=== PATIENT | female | born 1945 | race Caucasian/White ===

== ENCOUNTER 2017-10-27 23:24 | Emergency (ER) | payer OTHER ==
[~2017-10-27] VITALS: Ht 149.9 cm; Wt 79.4 kg
[~2017-10-27 23:24] MED LIST: ALBU90OI INH; CHOL10002 PO; CHOLESTEROL MED; CHOLESTEROL MEDICATI PO; CYCL10 PO; IBUP800 PO; PRED20 PO; TRAM50 PO; VITAMIN D; VITAMINS
[2017-10-27 23:56] LABS: BASOPHILS ABSOLUTE AUTO 0.05 K/mm3 (0.00-0.23); BASOPHILS PERCENT AUTO 1 % (0-2); EOSINOPHILS ABSOLUTE AUTO 0.38 K/mm3 (0.00-0.68); EOSINOPHILS PERCENT AUTO 4 % (0-6); Hematocrit 39.5 % (33.0-51.0); Hemoglobin 13.2 g/dL (11.5-16.0); IMMATURE GRAN ABSOLUTE AUTO 0.02 K/mm3 (0.00-0.10); IMMATURE GRAN PERCENT AUTO 0 % (0-1); LYMPHOCYTES ABSOLUTE AUTO 3.02 K/mm3 (0.84-5.20); LYMPHOCYTES PERCENT AUTO 34 % (21-46); MONOCYTES ABSOLUTE AUTO 0.55 K/mm3 (0.16-1.47); MONOCYTES PERCENT AUTO 6 % (4-13); Mean Corpuscular HGB 31.1 pg (26.0-34.0); Mean Corpuscular HGB Conc 33.4 g/dL (31.5-36.5); Mean Corpuscular Volume 93 fL (80-100); Mean Platelet Volume 9.8 fL (9.1-12.4); NEUTROPHILS PERCENT AUTO 55 % (41-73); Platelet Count 347 K/mm3 (150-400); RDW Standard Deviation 44.1 fL (35.1-46.3); Red Blood Cell Count 4.24 M/mm3 (3.80-5.20); White Blood Cell Count 8.82 K/mm3 (4.00-11.30)
[2017-10-28 00:10] LABS: International Normalized Ratio 1.04; Prothrombin Time Results 10.7 Sec (9.7-11.5)
[2017-10-28 00:31] LABS: Alanine Aminotransfer (ALT/SGP 17 U/L (12-78); Albumin, Blood 3.5 g/dL (3.4-5.0); Alk Phos 92 U/L (50-136); Anion Gap 7 mmol/L (6-16); Aspartate Aminotrans (AST/SGOT 13 U/L (12-37); Bilirubin, Total 0.2 mg/dL (0.1-1.0); Blood Urea Nitrogen 8 mg/dL (8-24); Bun/Creatinine Ratio 10.7 (12.0-20.0); CO2, Blood 26 mmol/L (21-32); Calcium, Blood 8.3 mg/dL (8.5-10.1); Chloride, Blood 110 mmol/L (98-108); Creatinine, Blood 0.75 mg/dL (0.40-1.00); Globulin, Blood 3.6 g/dL (2.2-4.0); Glomerular Filtration Rate >60 (60-); Glucose, Blood 109 mg/dL (70-99); Potassium, Blood 3.2 mmol/L (3.5-5.5); Sodium, Blood 143 mmol/L (136-145); Total Protein, Blood 7.1 g/dL (6.4-8.2)
[2017-10-28 00:54] LABS: Source, Urine Clean Catch
[2017-10-28 01:00] LABS: Bilirubin, Urine Neg (Neg); Blood, Urine 2+ (Neg); Glucose Qualitative, Urine Neg (Neg); Ketones, Urine Neg (Neg); Leukocyte Esterase, Urine Neg (Neg); Nitrite, Urine Neg (Neg); Protein, Urine Neg (Neg); Specific Gravity, Urine 1.015 (1.003-1.022); Urobilinogen, Urine NORM (Normal); pH, Urine 6.5 (5.0-8.0)
[2017-10-28 01:07] LABS: Appearance, Urine Clear (Clear); Color, Urine Yellow (P-Yellow)
[2017-10-28 01:08] LABS: Bacteria Mod /hpf; Red Blood Cells, Urine 0-2 /hpf (0-2); Squamous Epithelial Cells Mod /hpf (Few)
[2017-10-28] MEDS ORDERED: ALBU90OI6 INH (02:09)
== END 2017-10-28 02:54 | disposition home or self-care (01) ==
LOC: ER 23:24
PROVIDERS: Emergency Medicine
DX: J44.1 Chronic obstructive pulmonary disease with (acute) exacerbation (principal); Z77.098 Contact with and (suspected) exposure to other hazardous, chiefly nonmedicinal, chemicals; F17.210 Nicotine dependence, cigarettes, uncomplicated; Z88.8 Allergy status to other drugs, medicaments and biological substances
CPT/HCPCS: 36415; 71046; 80053; 81001; 85025; 85610; 85730; 87086; 93005; 93010; 96361; 96374; 96375; 99284-25; J1885; J2405; J7030

== ENCOUNTER → 2018-10-23 | Outpatient (CLI) | payer OTHER ==
[~2018-10-23] MED LIST changes: +ALBU90OI6 INH; +ASPI325EC PO; +CALCIUM 500 MG1 EACH PO; +KRILL OIL 3001 EACH PO; +Vitamin K100 MCG PO
== END | disposition home or self-care (01) ==
LOC: PLD 11:04 → LAB SHORT 11:04
DX: D48.5 Neoplasm of uncertain behavior of skin (principal)
CPT/HCPCS: 88305

== ENCOUNTER 2019-03-10 14:06 | Emergency (ER) | payer OTHER ==
[~2019-03-10] VITALS: Ht 149.9 cm; Wt 72.6 kg
[~2019-03-10 14:06] MED LIST changes: +OMEP20ER PO
[2019-03-10 15:29] LABS: Alanine Aminotransfer (ALT/SGP 14 U/L (12-78); Albumin, Blood 3.5 g/dL (3.4-5.0); Alk Phos 112 U/L (50-136); Anion Gap 7 mmol/L (6-16); Aspartate Aminotrans (AST/SGOT 17 U/L (12-37); Bilirubin, Total 0.4 mg/dL (0.1-1.0); Blood Urea Nitrogen 8 mg/dL (8-24); Bun/Creatinine Ratio 12.7 (12.0-20.0); CO2, Blood 23 mmol/L (21-32); Calcium, Blood 8.9 mg/dL (8.5-10.1); Chloride, Blood 109 mmol/L (98-108); Creatinine, Blood 0.63 mg/dL (0.40-1.00); Globulin, Blood 3.6 g/dL (2.2-4.0); Glomerular Filtration Rate >60 (60-); Glucose, Blood 83 mg/dL (70-99); Sodium, Blood 139 mmol/L (136-145); Total Protein, Blood 7.1 g/dL (6.4-8.2); Troponin I <0.015 ng/mL (0.000-0.040)
[2019-03-10 15:31] LABS: BASOPHILS ABSOLUTE AUTO 0.03 K/mm3 (0.00-0.23); BASOPHILS PERCENT AUTO 0 % (0-2); EOSINOPHILS ABSOLUTE AUTO 0.13 K/mm3 (0.00-0.68); EOSINOPHILS PERCENT AUTO 1 % (0-6); Hematocrit 42.9 % (33.0-51.0); Hemoglobin 14.1 g/dL (11.5-16.0); IMMATURE GRAN ABSOLUTE AUTO 0.04 K/mm3 (0.00-0.10); IMMATURE GRAN PERCENT AUTO 0 % (0-1); LYMPHOCYTES ABSOLUTE AUTO 1.92 K/mm3 (0.84-5.20); LYMPHOCYTES PERCENT AUTO 16 % (21-46); MONOCYTES ABSOLUTE AUTO 0.59 K/mm3 (0.16-1.47); MONOCYTES PERCENT AUTO 5 % (4-13); Mean Corpuscular HGB 30.7 pg (26.0-34.0); Mean Corpuscular HGB Conc 32.9 g/dL (31.5-36.5); Mean Corpuscular Volume 94 fL (80-100); Mean Platelet Volume 9.9 fL (9.1-12.4); NEUTROPHILS ABSOLUTE AUTO 9.23 K/mm3 (1.96-9.15); NEUTROPHILS PERCENT AUTO 77 % (41-73); Platelet Count 355 K/mm3 (150-400); RDW Coefficient Variation 12.4 % (11.7-14.2); RDW Standard Deviation 42.5 fL (35.1-46.3); Red Blood Cell Count 4.59 M/mm3 (3.80-5.20); White Blood Cell Count 11.94 K/mm3 (4.00-11.30)
[2019-03-10] MEDS ORDERED: Ultram50 MG PO (17:56)
[2019-03-10] MEDS ORDERED: Pepcid20 MG PO (18:11)
== END 2019-03-10 18:32 | disposition home or self-care (01) ==
LOC: ER 14:06
PROVIDERS: Physician Assistant
DX: R07.9 Chest pain, unspecified (principal); Z79.899 Other long term (current) drug therapy; Z88.8 Allergy status to other drugs, medicaments and biological substances; F17.210 Nicotine dependence, cigarettes, uncomplicated
CPT/HCPCS: 36415; 71046; 80053; 84484; 85025; 93005; 93010; 99284-25

== ENCOUNTER 2019-05-29 22:00 | Observation (INO) | payer OTHER ==
[~2019-05-29] VITALS: Ht 149.9 cm; Wt 70.8 kg
[~2019-05-29 22:00] MED LIST changes: +Pepcid20 MG PO; +Ultram50 MG PO
[2019-05-29 23:12] LABS: BASOPHILS ABSOLUTE AUTO 0.04 K/mm3 (0.00-0.23); BASOPHILS PERCENT AUTO 0 % (0-2); EOSINOPHILS ABSOLUTE AUTO 0.07 K/mm3 (0.00-0.68); EOSINOPHILS PERCENT AUTO 1 % (0-6); Hematocrit 39.1 % (33.0-51.0); IMMATURE GRAN ABSOLUTE AUTO 0.07 K/mm3 (0.00-0.10); IMMATURE GRAN PERCENT AUTO 1 % (0-1); LYMPHOCYTES ABSOLUTE AUTO 1.59 K/mm3 (0.84-5.20); LYMPHOCYTES PERCENT AUTO 11 % (21-46); MONOCYTES ABSOLUTE AUTO 1.04 K/mm3 (0.16-1.47); MONOCYTES PERCENT AUTO 7 % (4-13); Mean Corpuscular HGB 30.6 pg (26.0-34.0); Mean Corpuscular HGB Conc 33.2 g/dL (31.5-36.5); Mean Corpuscular Volume 92 fL (80-100); Mean Platelet Volume 9.8 fL (9.1-12.4); NEUTROPHILS ABSOLUTE AUTO 12.33 K/mm3 (1.96-9.15); NEUTROPHILS PERCENT AUTO 81 % (41-73); Platelet Count 369 K/mm3 (150-400); RDW Coefficient Variation 12.4 % (11.7-14.2); RDW Standard Deviation 42.5 fL (35.1-46.3); Red Blood Cell Count 4.25 M/mm3 (3.80-5.20); White Blood Cell Count 15.14 K/mm3 (4.00-11.30)
[2019-05-29 23:32] LABS: Alanine Aminotransfer (ALT/SGP 14 U/L (12-78); Albumin, Blood 3.1 g/dL (3.4-5.0); Albumin/Globulin Ratio 0.7 (0.8-1.8); Alk Phos 94 U/L (50-136); Anion Gap 10 mmol/L (6-16); Aspartate Aminotrans (AST/SGOT 9 U/L (12-37); Bilirubin, Total 0.9 mg/dL (0.1-1.0); Blood Urea Nitrogen 11 mg/dL (8-24); Bun/Creatinine Ratio 13.1 (12.0-20.0); CO2, Blood 22 mmol/L (21-32); Calcium, Blood 8.8 mg/dL (8.5-10.1); Chloride, Blood 106 mmol/L (98-108); Creatinine, Blood 0.84 mg/dL (0.40-1.00); Globulin, Blood 4.2 g/dL (2.2-4.0); Glomerular Filtration Rate >60 (60-); Glucose, Blood 117 mg/dL (70-99); Potassium, Blood 3.5 mmol/L (3.5-5.5); Sodium, Blood 138 mmol/L (136-145); Total Protein, Blood 7.3 g/dL (6.4-8.2); Troponin I <0.015 ng/mL (0.000-0.040)
[2019-05-30 01:33] LABS: PO2 Arterial 54.1 mmHg (80-100); pH Blood Arterial 7.41 (7.35-7.45)
--- NOTE | 2019-05-30 03:16 | NUR ---
PATIENT IS A NEW ADMIT FROM THE ED. THREE PERSON TRANSFER FROM THE [facility] TO BED. IV ABX INFUSING ON ADMIT AND COMPLETED. PATIENT ORIENTED TO ROOM AND CALL LIGHT SYSTEM. SOB WITH EXERTION. ON ROOM AIR. REPORTED BILATERAL RIB PAIN AND RECEIVED PAIN MEDICATION IN ED BEFORE TRANSFER. CALL LIGHT IN REACH. BED IN LOWEST POSITION. WILL CONTINUE TO MONITOR.
--- NOTE | 2019-05-30 03:43 | NUR ---
RESPIRATORY PANEL COLLECTED AND SENT TO LAB. PATIENT REPORTS PIV FIELD START PAINFUL AND NEW PIV PLACED. PATIENT RESTING WATCHING TV. CALL LIGHT IN REACH.
[2019-05-30 05:03] LABS: Adenovirus Not Detected (NOT DETECT); Bordetella pertussis Not Detected (NOT DETECT); Chlamydophila pneumoniae Not Detected (NOT DETECT); Coronavirus 229E Not Detected (NOT DETECT); Coronavirus HKU1 Not Detected (NOT DETECT); Coronavirus NL63 Not Detected (NOT DETECT); Coronavirus OC43 Not Detected (NOT DETECT); Human Metapneumovirus Not Detected (NOT DETECT); Human Rhinovirus/Enterovirus Not Detected (NOT DETECT); Influenza A/2009-H1 Not Detected (NOT DETECT); Influenza A/H1 Not Detected (NOT DETECT); Influenza A/H3 Not Detected (NOT DETECT); Influenza B Not Detected (NOT DETECT); Mycoplasma pneumoniae Not Detected (NOT DETECT); Parainfluenza Virus 1 Not Detected (NOT DETECT); Parainfluenza Virus 2 Not Detected (NOT DETECT); Parainfluenza Virus 3 Not Detected (NOT DETECT); Parainfluenza Virus 4 Not Detected (NOT DETECT); Respiratory Syncytial Virus Not Detected (NOT DETECT)
--- NOTE | 2019-05-30 06:27 | NUR ---
SHIFT SUMMARY PATIENT HAD NO ACUTE CHANGES OBSERVED. AXOX 3 AND ONE ASSIST TO BSC. SOB W/EXERTION AND ON ROOM AIR. NEW PIV PLACED REPORTED FIELD START PAINFUL. CEDS 1 1/2 PACKS X 62 YEARS. ACCOUNT CONTACT ASSOCIATE REPORTS NSR 79. RESPIRATORY PANEL COLLECTED AND SENT TO LAB. NEGATIVE PANEL. VSS/AFEBRILE. REPORTED BILATERAL LOWER RIB PAIN AND TYLENOL GIVEN PER EMAR. COOPERATIVE WITH CARE. CALL LIGHT IN REACH. BED IN LOWEST POSITION. WILL CONTINUE TO MONITOR UNTIL DAY SHIFT NURSE ASSUMES CARE.
[2019-05-30 12:58] LABS: Hematocrit 37.6 % (33.0-51.0); Hemoglobin 12.3 g/dL (11.5-16.0); Mean Corpuscular HGB 30.7 pg (26.0-34.0); Mean Corpuscular HGB Conc 32.7 g/dL (31.5-36.5); Mean Corpuscular Volume 94 fL (80-100); Mean Platelet Volume 9.6 fL (9.1-12.4); Platelet Count 375 K/mm3 (150-400); RDW Coefficient Variation 12.5 % (11.7-14.2); RDW Standard Deviation 43.8 fL (35.1-46.3); Red Blood Cell Count 4.01 M/mm3 (3.80-5.20); White Blood Cell Count 9.97 K/mm3 (4.00-11.30)
[2019-05-30 13:21] LABS: Alanine Aminotransfer (ALT/SGP 10 U/L (12-78); Albumin, Blood 3.1 g/dL (3.4-5.0); Albumin/Globulin Ratio 0.8 (0.8-1.8); Alk Phos 90 U/L (50-136); Anion Gap 8 mmol/L (6-16); Aspartate Aminotrans (AST/SGOT 11 U/L (12-37); Bilirubin, Total 0.5 mg/dL (0.1-1.0); Blood Urea Nitrogen 12 mg/dL (8-24); Bun/Creatinine Ratio 14.6 (12.0-20.0); CO2, Blood 24 mmol/L (21-32); Calcium, Blood 8.8 mg/dL (8.5-10.1); Chloride, Blood 106 mmol/L (98-108); Creatinine, Blood 0.82 mg/dL (0.40-1.00); Globulin, Blood 3.9 g/dL (2.2-4.0); Glomerular Filtration Rate >60 (60-); Glucose, Blood 125 mg/dL (70-99); Potassium, Blood 3.1 mmol/L (3.5-5.5); Sodium, Blood 138 mmol/L (136-145)
--- NOTE | 2019-05-30 17:55 | NUR ---
SHIFT SUMMARY. A&OX4, SBA TO BATHROOM, PT IS AWARE OF LIMITATIONS AND CALLS APPROPRIATELY. PT CONTINUES WITH BILATERAL RIB AREA PAIN, PAIN MANAGED WELL WITH CURRENT ORDERS. NO N/V, SOB. NO NEW CHANGES OR CONCERNS.
--- NOTE | 2019-05-31 03:36 | NUR ---
SHIFT SUMMARY PATIENT HAD NO ACUTE CHANGES OBSERVED. AXOX 4 AND SBA TO BR. VSS/AFEBRILE. REPORTED SHOULDER/NECK PAIN X ONE AND IV FENTANYL 25 MCG GIVEN PER EMAR. PAIN REDUCED AND PATIENT ABLE TO SLEEP. PIV REMAINS INTACT. NS INFUSING AT 100 mL/HR. CONCRETE GRINDER OPERATOR REPORTS NSR 77. DENIES SOB AND N/V. COOPERATIVE WITH CARE. CALL LIGHT IN REACH. BED IN LOWEST POSITION. WILL CONTINUE TO MONITOR UNTIL DAY SHIFT NURSE ASSUMES CARE.
[2019-05-31] MEDS ORDERED: BENZ100A PO (11:52)
[2019-05-31] MEDS ORDERED: ALBU90OI INH (11:54)
[2019-05-31] MEDS ORDERED: Vsl#3 Capsule1 EACH PO (11:54)
[2019-05-31] MEDS ORDERED: AZIT500 PO (11:55)
[2019-05-31] MEDS ORDERED: GUAI600T33 PO (11:55)
[2019-05-31] MEDS ORDERED: CEFU500T30 PO (11:55)
[2019-05-31] MEDS ORDERED: IBUP400 PO (11:56)
--- NOTE | 2019-05-31 15:28 | NUR ---
1521 PT DISHCARGED HOME VIA PERSONAL VEHICLE ACCOMPANIED AND DRIVEN BY SISTER. PT ESCORTED TO ENTRANCE VIA W/C BY ASSOCIATE JAVA DEVELOPER. IV REMOVED. D/C PAPERWORK REVIEWED WITH PT AND COPY PROVIDED. NO NEW CHANGES OR CONCERNS.
== END 2019-05-31 15:21 | disposition home or self-care (01) ==
LOC: ER 22:00 → MEDS 22:01 → ENPENDDIS 05-31 10:00 → MEDS 05-31 15:21
PROVIDERS: Emergency Medicine; ADMIT Internal Medicine
DX: J18.9 Pneumonia, unspecified organism (principal); J96.01 Acute respiratory failure with hypoxia; E87.6 Hypokalemia; R19.7 Diarrhea, unspecified; K21.9 Gastro-esophageal reflux disease without esophagitis; Z79.899 Other long term (current) drug therapy; F17.210 Nicotine dependence, cigarettes, uncomplicated
CPT/HCPCS: 0099U; 36415; 36600; 71046; 80053; 82803; 83605; 83690; 83880; 84484; 85025; 85027; 93005; 93010; 94761; 96361; 96365; 96366; 96367; 96368; 96372; 96375; 96376; 97161; 99285-25; A9270; G0378; J0456; J0696; J1650; J1885; J1940; J2270; J2405; J3010; J7030; J7050

== ENCOUNTER → 2019-07-29 | Outpatient (CLI) | payer OTHER ==
[~2019-07-29] MED LIST changes: +AZIT500 PO; +BENZ100A PO; +CEFU500T30 PO; +GUAI600T33 PO; +IBUP400 PO; +Vsl#3 Capsule1 EACH PO
== END | disposition home or self-care (01) ==
LOC: LAB SHORT 11:39 → PLD 11:39
DX: D48.5 Neoplasm of uncertain behavior of skin (principal)
CPT/HCPCS: 88305

== ENCOUNTER → 2020-02-08 | Outpatient (CLI) | payer OTHER | END | disposition home or self-care (01) | LOC: PLD 15:40 → LAB SHORT 15:40 | DX: D22.62 Melanocytic nevi of left upper limb, including shoulder (principal); D48.5 Neoplasm of uncertain behavior of skin | CPT/HCPCS: 88305 ==

== ENCOUNTER 2020-03-03 13:23 | Emergency (ER) | payer OTHER ==
[~2020-03-03] VITALS: Ht 149.9 cm; Wt 72.6 kg
[2020-03-03 14:22] LABS: BASOPHILS ABSOLUTE AUTO 0.05 K/mm3 (0.00-0.23); BASOPHILS PERCENT AUTO 1 % (0-2); EOSINOPHILS ABSOLUTE AUTO 0.35 K/mm3 (0.00-0.68); EOSINOPHILS PERCENT AUTO 5 % (0-6); Hematocrit 42.5 % (33.0-51.0); Hemoglobin 13.8 g/dL (11.5-16.0); IMMATURE GRAN ABSOLUTE AUTO 0.02 K/mm3 (0.00-0.10); IMMATURE GRAN PERCENT AUTO 0 % (0-1); LYMPHOCYTES PERCENT AUTO 24 % (21-46); MONOCYTES ABSOLUTE AUTO 0.52 K/mm3 (0.16-1.47); MONOCYTES PERCENT AUTO 7 % (4-13); Mean Corpuscular HGB 30.6 pg (26.0-34.0); Mean Corpuscular HGB Conc 32.5 g/dL (31.5-36.5); Mean Corpuscular Volume 94 fL (80-100); Mean Platelet Volume 9.1 fL (9.1-12.4); NEUTROPHILS ABSOLUTE AUTO 4.38 K/mm3 (1.96-9.15); NEUTROPHILS PERCENT AUTO 62 % (41-73); Platelet Count 376 K/mm3 (150-400); RDW Coefficient Variation 12.5 % (11.7-14.2); RDW Standard Deviation 43.7 fL (35.1-46.3); Red Blood Cell Count 4.51 M/mm3 (3.80-5.20); White Blood Cell Count 7.02 K/mm3 (4.00-11.30)
[2020-03-03 14:32] LABS: Source, Urine Clean Catch
[2020-03-03 14:43] LABS: Appearance, Urine Clear (Clear); Bilirubin, Urine Neg (Neg); Blood, Urine Neg (Neg); Color, Urine Yellow (P-Yellow); Glucose Qualitative, Urine Neg (Neg); Ketones, Urine Neg (Neg); Leukocyte Esterase, Urine Neg (Neg); Nitrite, Urine Neg (Neg); Protein, Urine Neg (Neg); Urobilinogen, Urine NORM (Normal)
[2020-03-03 14:56] LABS: Alanine Aminotransfer (ALT/SGP 22 U/L (12-78); Albumin, Blood 3.5 g/dL (3.4-5.0); Albumin/Globulin Ratio 0.9 (0.8-1.8); Alk Phos 111 U/L (50-136); Anion Gap 4 mmol/L (6-16); Aspartate Aminotrans (AST/SGOT 20 U/L (12-37); Bilirubin, Total 0.5 mg/dL (0.1-1.0); Blood Urea Nitrogen 11 mg/dL (8-24); Bun/Creatinine Ratio 15.1 (12.0-20.0); CO2, Blood 27 mmol/L (21-32); Chloride, Blood 107 mmol/L (98-108); Creatinine, Blood 0.73 mg/dL (0.40-1.00); Glomerular Filtration Rate >60 (60-); Glucose, Blood 94 mg/dL (70-99); Potassium, Blood 4.2 mmol/L (3.5-5.5); Sodium, Blood 138 mmol/L (136-145); Total Protein, Blood 7.5 g/dL (6.4-8.2)
== END 2020-03-03 17:57 | disposition left against medical advice (07) ==
LOC: ER 13:23
PROVIDERS: Physician Assistant
DX: R42 Dizziness and giddiness (principal); J44.9 Chronic obstructive pulmonary disease, unspecified; K21.9 Gastro-esophageal reflux disease without esophagitis; F17.210 Nicotine dependence, cigarettes, uncomplicated; Z88.8 Allergy status to other drugs, medicaments and biological substances; Z79.899 Other long term (current) drug therapy
CPT/HCPCS: 36415; 70470; 71045; 80053; 81003; 84484; 85025; 93005; 93010; 96374-59; 96375-59; 99284-25; J2550; J3360; Q9967

== ENCOUNTER → 2020-08-03 | Outpatient (CLI) | payer OTHER ==
[~2020-08-03] MED LIST changes: +AZIT250 PO; +Acetaminophen325 M1 PO; +IPRAT-ALBUT 0.5-3 ML; +NICODERM CQ1 EAC3 TOP; +ONDA4ODT MM; +Q-Tussin100 MG/5 M PO
== END ==
LOC: LAB SHORT 13:05 → PLD 13:05
DX: D48.5 Neoplasm of uncertain behavior of skin (principal); D22.4 Melanocytic nevi of scalp and neck
CPT/HCPCS: 88305

== ENCOUNTER 2020-09-10 15:56 | Inpatient (IN) | payer OTHER ==
[~2020-09-10] VITALS: Ht 149.9 cm; Wt 67.4 kg
[~2020-09-10 15:56] MED LIST changes: -AZIT250 PO; -Acetaminophen325 M1 PO; -IPRAT-ALBUT 0.5-3 ML; -NICODERM CQ1 EAC3 TOP; -ONDA4ODT MM; -Q-Tussin100 MG/5 M PO
[2020-09-10 16:54] LABS: BASOPHILS ABSOLUTE AUTO 0.04 K/mm3 (0.00-0.23); BASOPHILS PERCENT AUTO 1 % (0-2); EOSINOPHILS ABSOLUTE AUTO 0.26 K/mm3 (0.00-0.68); EOSINOPHILS PERCENT AUTO 3 % (0-6); Hemoglobin 13.6 g/dL (11.5-16.0); IMMATURE GRAN ABSOLUTE AUTO 0.09 K/mm3 (0.00-0.10); IMMATURE GRAN PERCENT AUTO 1 % (0-1); LYMPHOCYTES ABSOLUTE AUTO 1.33 K/mm3 (0.84-5.20); LYMPHOCYTES PERCENT AUTO 16 % (21-46); MONOCYTES ABSOLUTE AUTO 0.46 K/mm3 (0.16-1.47); MONOCYTES PERCENT AUTO 6 % (4-13); Mean Corpuscular HGB 30.2 pg (26.0-34.0); Mean Corpuscular HGB Conc 33.2 g/dL (31.5-36.5); Mean Corpuscular Volume 91 fL (80-100); NEUTROPHILS ABSOLUTE AUTO 6.19 K/mm3 (1.96-9.15); NEUTROPHILS PERCENT AUTO 74 % (41-73); RDW Coefficient Variation 13.4 % (11.7-14.2); RDW Standard Deviation 44.9 fL (35.1-46.3); White Blood Cell Count 8.37 K/mm3 (4.00-11.30)
[2020-09-10 16:55] LABS: Mean Platelet Volume 9.9 fL (9.1-12.4); Platelet Count 313 K/mm3 (150-400)
[2020-09-10 17:13] LABS: Alanine Aminotransfer (ALT/SGP 14 U/L (12-78); Albumin, Blood 3.2 g/dL (3.4-5.0); Albumin/Globulin Ratio 0.8 (0.8-1.8); Alk Phos 98 U/L (50-136); Anion Gap 5 mmol/L (6-16); Aspartate Aminotrans (AST/SGOT 10 U/L (12-37); Bilirubin, Total 0.4 mg/dL (0.1-1.0); Blood Urea Nitrogen 8 mg/dL (8-24); Bun/Creatinine Ratio 9.5 (12.0-20.0); CO2, Blood 28 mmol/L (21-32); Calcium, Blood 8.5 mg/dL (8.5-10.1); Chloride, Blood 105 mmol/L (98-108); Creatinine, Blood 0.84 mg/dL (0.40-1.00); Globulin, Blood 4.1 g/dL (2.2-4.0); Glomerular Filtration Rate >60 (60-); Glucose, Blood 117 mg/dL (70-99); Potassium, Blood 2.7 mmol/L (3.5-5.5); Sodium, Blood 138 mmol/L (136-145); Total Protein, Blood 7.3 g/dL (6.4-8.2); Troponin I <0.015 ng/mL (0.000-0.040)
[2020-09-10 17:23] LABS: SARS-Cov-2 (COVID-19) PCR, MMC NEGATIVE (NEGATIVE)
[2020-09-10 19:17] LABS: Source, Urine Clean Catch
[2020-09-10 19:20] LABS: Bilirubin, Urine Neg (Neg); Blood, Urine 3+ (Neg); Glucose Qualitative, Urine Neg (Neg); Ketones, Urine Neg (Neg); Leukocyte Esterase, Urine Neg (Neg); Nitrite, Urine Neg (Neg); Protein, Urine 1+ (Neg); Urobilinogen, Urine 1+ (Normal); pH, Urine 6.5 (5.0-8.0)
[2020-09-10 19:27] LABS: Appearance, Urine Clear (Clear); Color, Urine Pale Yellow (P-Yellow)
[2020-09-10 19:28] LABS: White Blood Cells, Urine Rare /hpf (0-5)
[2020-09-10 19:29] LABS: Bacteria Few /hpf; Squamous Epithelial Cells Rare /hpf (Few)
--- NOTE | 2020-09-10 20:25 | NUR ---
ADMITTED 75 YR OLD FEMALE WITH DX OF PNEUMONIA. ED RN REPORETD PT HAD 2 WEEKS OF N/V, DIARRHEA AND CONGESTION PRIOR TO ADMISSION TODAY. OREINTED TO USE OF CALL LIGHT. ALERT AND ORIENTED X 4. UP AD CISCO. CALL LIGHT IN REACH
--- NOTE | 2020-09-10 22:55 | NUR ---
MD IN TO ASSESS PT. CALL LIGHT IN REACH
--- NOTE | 2020-09-11 05:34 | NUR ---
METAL ENGINEERING PROCESS WORKER SUMMARY ADMITTED LAST EVENING FROM THE ED WITH DX OF PNEUMONIA. INTERMITTENT COUGHING THROUGHOUT NOCT. LUNG AUSCULTATION CONGESTED, RONCHI AND DIMINISHED. RECEIVED COUGH MED X 2, MED EFFECTIVE SHE WAS ABLE TO GET SOME REST AT INTERVALS. MD ORDERED IV POTASSIUM, MED INFUSING SLOWLY WITH NS, PT VOICED PAIN WITH INFUSION. CALL LIGHT IN REACH.
[2020-09-11 05:43] LABS: BASOPHILS ABSOLUTE AUTO 0.01 K/mm3 (0.00-0.23); BASOPHILS PERCENT AUTO 0 % (0-2); EOSINOPHILS PERCENT AUTO 0 % (0-6); Hematocrit 38.4 % (33.0-51.0); Hemoglobin 12.8 g/dL (11.5-16.0); IMMATURE GRAN ABSOLUTE AUTO 0.03 K/mm3 (0.00-0.10); IMMATURE GRAN PERCENT AUTO 0 % (0-1); LYMPHOCYTES ABSOLUTE AUTO 0.63 K/mm3 (0.84-5.20); LYMPHOCYTES PERCENT AUTO 7 % (21-46); MONOCYTES ABSOLUTE AUTO 0.07 K/mm3 (0.16-1.47); MONOCYTES PERCENT AUTO 1 % (4-13); Mean Corpuscular HGB 30.8 pg (26.0-34.0); Mean Corpuscular HGB Conc 33.3 g/dL (31.5-36.5); Mean Corpuscular Volume 93 fL (80-100); Mean Platelet Volume 10.6 fL (9.1-12.4); NEUTROPHILS ABSOLUTE AUTO 8.06 K/mm3 (1.96-9.15); NEUTROPHILS PERCENT AUTO 92 % (41-73); Platelet Count 325 K/mm3 (150-400); RDW Coefficient Variation 13.4 % (11.7-14.2); RDW Standard Deviation 45.7 fL (35.1-46.3); Red Blood Cell Count 4.15 M/mm3 (3.80-5.20)
[2020-09-11 06:03] LABS: Alanine Aminotransfer (ALT/SGP 15 U/L (12-78); Albumin, Blood 3.1 g/dL (3.4-5.0); Albumin/Globulin Ratio 0.7 (0.8-1.8); Alk Phos 96 U/L (50-136); Anion Gap 9 mmol/L (6-16); Aspartate Aminotrans (AST/SGOT 10 U/L (12-37); Bilirubin, Total 0.3 mg/dL (0.1-1.0); Blood Urea Nitrogen 9 mg/dL (8-24); Bun/Creatinine Ratio 12.8 (12.0-20.0); CO2, Blood 22 mmol/L (21-32); Calcium, Blood 8.6 mg/dL (8.5-10.1); Chloride, Blood 106 mmol/L (98-108); Creatinine, Blood 0.71 mg/dL (0.40-1.00); Globulin, Blood 4.2 g/dL (2.2-4.0); Glomerular Filtration Rate >60 (60-); Glucose, Blood 236 mg/dL (70-99); Potassium, Blood 3.2 mmol/L (3.5-5.5); Sodium, Blood 137 mmol/L (136-145); Total Protein, Blood 7.3 g/dL (6.4-8.2)
--- NOTE | 2020-09-11 16:52 | NUR ---
SHIFT SUMMARY PT ALERT AND ORIENTED THROUGHOUT SHIFT. INDPENDENT IN ROOM AND TO BATHROOM. COUGH WITH DIMINISHED LUNG SOUNDS IN BASES. SPO2 ABOVE 90% ON RA. HERE FOR IV ABX. MEDICATED FOR PAIN PER EMAR. TOLERATING REGULAR DIET AND FLUIDS.
--- NOTE | 2020-09-11 22:10 | NUR ---
2052 PT LYING IN BED, REPORTS BACK PAIN, GAVE TYLENOL, WILL EVAL FOR EFFECT. REPORTS SOB AND OCCASIONAL PRODUCTIVE COUGH, SPUTUM IS CLEAR PER PT, ON RA AT 91%. NO OTHER APPARENT SIGNS OF DISTRESS. CALL LIGHT IS IN REACH.
--- NOTE | 2020-09-12 02:50 | NUR ---
0000 PT LYING IN BED, DENIES NEED FOR ANYTHING AT THIS TIME. NO APPARENT SIGNS OF DISTRESS. CALL LIGHT IS IN REACH.
--- NOTE | 2020-09-12 02:50 | NUR ---
PT LYING IN BED, EYES CLOSED, APPEARS TO BE RESTING. BREATHING IS EVEN, UNLABORED. NO APPARENT SIGNS OF DISTRESS. CALL LIGHT IS IN REACH.
--- NOTE | 2020-09-12 04:45 | NUR ---
PT REQUESTED AND RECIEVED COUGH MEDICINE, WILL EVAL FOR EFFECT. NO OTHER APPARENT SIGNS OF DISTRESS. CALL LIGHT IS IN REACH. PT DENIES NEED FOR ANYTHING ELSE AT THIS TIME.
--- NOTE | 2020-09-12 04:45 | NUR ---
PT IS AAO X 4, SOB, ON RA AT 91%. CHRONIC BACK PAIN, GOT TYLENOL AT HS. OCC PRODUCTIVE COUGH, CLEAR THIN SPUTUM SMALL AMOUNT PER PT, GOT COUGH MEDICINE X 2, LAST AT 0447.
[2020-09-12 05:17] LABS: BASOPHILS ABSOLUTE AUTO 0.02 K/mm3 (0.00-0.23); BASOPHILS PERCENT AUTO 0 % (0-2); EOSINOPHILS PERCENT AUTO 0 % (0-6); Hematocrit 38.8 % (33.0-51.0); Hemoglobin 12.7 g/dL (11.5-16.0); IMMATURE GRAN ABSOLUTE AUTO 0.09 K/mm3 (0.00-0.10); IMMATURE GRAN PERCENT AUTO 1 % (0-1); LYMPHOCYTES ABSOLUTE AUTO 1.35 K/mm3 (0.84-5.20); LYMPHOCYTES PERCENT AUTO 9 % (21-46); MONOCYTES ABSOLUTE AUTO 0.27 K/mm3 (0.16-1.47); MONOCYTES PERCENT AUTO 2 % (4-13); Mean Corpuscular HGB 29.8 pg (26.0-34.0); Mean Corpuscular HGB Conc 32.7 g/dL (31.5-36.5); Mean Corpuscular Volume 91 fL (80-100); Mean Platelet Volume 10.4 fL (9.1-12.4); NEUTROPHILS ABSOLUTE AUTO 13.95 K/mm3 (1.96-9.15); NEUTROPHILS PERCENT AUTO 89 % (41-73); Platelet Count 400 K/mm3 (150-400); RDW Coefficient Variation 13.3 % (11.7-14.2); RDW Standard Deviation 45.4 fL (35.1-46.3); Red Blood Cell Count 4.26 M/mm3 (3.80-5.20); White Blood Cell Count 15.68 K/mm3 (4.00-11.30)
[2020-09-12 05:34] LABS: Anion Gap 5 mmol/L (6-16); Blood Urea Nitrogen 11 mg/dL (8-24); Bun/Creatinine Ratio 14.5 (12.0-20.0); CO2, Blood 25 mmol/L (21-32); Calcium, Blood 9.1 mg/dL (8.5-10.1); Chloride, Blood 110 mmol/L (98-108); Creatinine, Blood 0.76 mg/dL (0.40-1.00); Glomerular Filtration Rate >60 (60-); Glucose, Blood 137 mg/dL (70-99); Potassium, Blood 3.7 mmol/L (3.5-5.5); Sodium, Blood 140 mmol/L (136-145)
--- NOTE | 2020-09-12 06:15 | NUR ---
PT LYING IN BED, EYES CLOSED, APPEARS TO BE RESTING. BREATHING IS EVEN, UNLABORED. NO APPARENT SIGNS OF DISTRESS. CALL LIGHT IS IN REACH. NO OTHER CHANGES THIS SHIFT.
--- NOTE | 2020-09-12 18:05 | NUR ---
SHIFT SUMMARY PT A/O X4 AND IND IN THE ROOM. C/O COUGHING FITS AND TREATED PER EMR. PT IS A LONG TIME SMOKER; NICOTINE PATCH IN PLACE. HAD AN EPISODE OF HTN TODAY AND THE PHYSICIAN WAS NOTIFIED AND ORDERS WERE RECEIVED. RECHECKED BP AND HTN HAD SINCE RESOLVED. VS CURRENTLY STABLE. WILL REPORT TO JEOVANY JOHNSON.
--- NOTE | 2020-09-12 19:35 | NUR ---
AWAKENED DURING SHIFT CHANGE REEPORT. NO COMPLAINTS VOICED. CALL LIGHT IN REACH
--- NOTE | 2020-09-13 04:01 | NUR ---
ACTUARIAL CONSULTANT SUMMARY HAS BEEN RESTING QUIETLY WITH FEW INTERRUPTIONS SINCE HS. OCCASIONAL COUGHING, BUT NOT LIKE WAS NOTED 24 HRS PREVIOUS. CALL LIGHT IN REACH.
[2020-09-13] MEDS ORDERED: Acetaminophen325 M1 PO (11:34)
[2020-09-13] MEDS ORDERED: AZIT250 PO (11:35)
[2020-09-13] MEDS ORDERED: Q-Tussin100 MG/5 M PO (11:36)
[2020-09-13] MEDS ORDERED: IPRAT-ALBUT 0.5-3 ML (11:37)
[2020-09-13] MEDS ORDERED: ONDA4ODT MM (11:39)
[2020-09-13] MEDS ORDERED: NICODERM CQ1 EAC3 TOP (11:39)
[2020-09-13] MEDS ORDERED: PRED20 PO (11:40)
== END 2020-09-13 12:09 | disposition home or self-care (01) | DRG 205 ==
LOC: ER 15:56 → MEDS 15:57 → ER 19:25 → MEDS 19:25
PROVIDERS: Internal Medicine; Physician Assistant; ADMIT Internal Medicine
DX: J70.0 Acute pulmonary manifestations due to radiation (principal); J96.21 Acute and chronic respiratory failure with hypoxia; C34.90 Malignant neoplasm of unspecified part of unspecified bronchus or lung; K21.9 Gastro-esophageal reflux disease without esophagitis; F17.210 Nicotine dependence, cigarettes, uncomplicated; E86.0 Dehydration; K52.9 Noninfective gastroenteritis and colitis, unspecified; E87.6 Hypokalemia; J20.9 Acute bronchitis, unspecified; K46.9 Unspecified abdominal hernia without obstruction or gangrene; J43.9 Emphysema, unspecified; G89.29 Other chronic pain; R10.31 Right lower quadrant pain; Z90.89 Acquired absence of other organs; Z98.890 Other specified postprocedural states; Z98.891 History of uterine scar from previous surgery; Z79.899 Other long term (current) drug therapy; W88.0XXA Exposure to X-rays, initial encounter
CPT/HCPCS: 36415; 71045; 71260; 74177; 80048; 80053; 81001; 83690; 83880; 84145; 84484; 85025; 93005; 93010; 94640; 94667; 94760; 96365; 99284-25; A9270; C9113; J0456; J0696; J1650; J2930; J3475; J3480; J7050; J7512; Q9967; U0004

== ENCOUNTER 2020-11-29 19:59 | Emergency (ER) | payer OTHER ==
[~2020-11-29] VITALS: Ht 149.9 cm; Wt 70.3 kg
[~2020-11-29 19:59] MED LIST changes: +AZIT250 PO; +Acetaminophen325 M1 PO; +IPRAT-ALBUT 0.5-3 ML; +NICODERM CQ1 EAC3 TOP; +ONDA4ODT MM; +Q-Tussin100 MG/5 M PO
== END 2020-11-29 22:33 | disposition home or self-care (01) ==
LOC: ER 19:59
DX: S82.034A Nondisplaced transverse fracture of right patella, initial encounter for closed fracture (principal); J44.9 Chronic obstructive pulmonary disease, unspecified; F17.210 Nicotine dependence, cigarettes, uncomplicated; Z88.8 Allergy status to other drugs, medicaments and biological substances; Z79.899 Other long term (current) drug therapy; W18.30XA Fall on same level, unspecified, initial encounter
CPT/HCPCS: 73564; 99283-25; A9270

== ENCOUNTER 2020-12-20 11:55 | Emergency (ER) | payer OTHER ==
[~2020-12-20] VITALS: Ht 149.9 cm; Wt 70.8 kg
== END 2020-12-20 14:38 | disposition home or self-care (01) ==
LOC: ER 11:55
DX: S82.001D Unspecified fracture of right patella, subsequent encounter for closed fracture with routine healing (principal); M79.661 Pain in right lower leg; J44.9 Chronic obstructive pulmonary disease, unspecified; F17.210 Nicotine dependence, cigarettes, uncomplicated; Z88.8 Allergy status to other drugs, medicaments and biological substances; Z79.899 Other long term (current) drug therapy
CPT/HCPCS: 73564; 93971; 99283-25

== ENCOUNTER 2021-01-30 09:06 | Emergency (ER) | payer OTHER ==
[~2021-01-30] VITALS: Ht 149.9 cm; Wt 71.2 kg
[2021-01-30 09:26] LABS: Source, Urine Clean Catch
[2021-01-30 09:30] LABS: Appearance, Urine Clear (Clear); Bilirubin, Urine Neg (Neg); Blood, Urine 5+ (Neg); Color, Urine Yellow (P-Yellow); Glucose Qualitative, Urine Neg (Neg); Ketones, Urine 3+ (Neg); Leukocyte Esterase, Urine 1+ (Neg); Nitrite, Urine Neg (Neg); Protein, Urine 3+ (Neg); Specific Gravity, Urine 1.025 (1.003-1.022); Urobilinogen, Urine NORM (Normal)
[2021-01-30 09:42] LABS: Squamous Epithelial Cells Few /hpf (Few)
[2021-01-30 09:43] LABS: Bacteria Few /hpf; Mucus Light (0-Heavy)
[2021-01-30 09:55] LABS: BASOPHILS ABSOLUTE AUTO 0.03 K/mm3 (0.00-0.23); BASOPHILS PERCENT AUTO 0 % (0-2); EOSINOPHILS ABSOLUTE AUTO 0.05 K/mm3 (0.00-0.68); EOSINOPHILS PERCENT AUTO 0 % (0-6); Hematocrit 38.5 % (33.0-51.0); Hemoglobin 12.8 g/dL (11.5-16.0); IMMATURE GRAN ABSOLUTE AUTO 0.05 K/mm3 (0.00-0.10); IMMATURE GRAN PERCENT AUTO 0 % (0-1); LYMPHOCYTES ABSOLUTE AUTO 0.91 K/mm3 (0.84-5.20); LYMPHOCYTES PERCENT AUTO 7 % (21-46); MONOCYTES ABSOLUTE AUTO 0.36 K/mm3 (0.16-1.47); MONOCYTES PERCENT AUTO 3 % (4-13); Mean Corpuscular HGB 30.7 pg (26.0-34.0); Mean Corpuscular HGB Conc 33.2 g/dL (31.5-36.5); Mean Corpuscular Volume 92 fL (80-100); Mean Platelet Volume 9.8 fL (9.1-12.4); NEUTROPHILS ABSOLUTE AUTO 11.97 K/mm3 (1.96-9.15); NEUTROPHILS PERCENT AUTO 90 % (41-73); Platelet Count 434 K/mm3 (150-400); RDW Coefficient Variation 12.3 % (11.7-14.2); RDW Standard Deviation 41.9 fL (35.1-46.3); Red Blood Cell Count 4.17 M/mm3 (3.80-5.20); White Blood Cell Count 13.37 K/mm3 (4.00-11.30)
[2021-01-30 10:09] LABS: Alanine Aminotransfer (ALT/SGP 17 U/L (12-78); Albumin, Blood 3.3 g/dL (3.4-5.0); Albumin/Globulin Ratio 0.7 (0.8-1.8); Alk Phos 103 U/L (50-136); Anion Gap 3 mmol/L (6-16); Aspartate Aminotrans (AST/SGOT 14 U/L (12-37); Bilirubin, Total 0.6 mg/dL (0.1-1.0); Blood Urea Nitrogen 10 mg/dL (8-24); Bun/Creatinine Ratio 11.8 (12.0-20.0); CO2, Blood 27 mmol/L (21-32); Calcium, Blood 9.4 mg/dL (8.5-10.1); Chloride, Blood 108 mmol/L (98-108); Creatinine, Blood 0.85 mg/dL (0.40-1.00); Globulin, Blood 4.5 g/dL (2.2-4.0); Glomerular Filtration Rate >60 (60-); Glucose, Blood 137 mg/dL (70-99); Potassium, Blood 4.2 mmol/L (3.5-5.5); Sodium, Blood 138 mmol/L (136-145); Total Protein, Blood 7.8 g/dL (6.4-8.2)
[2021-01-30] MEDS ORDERED: HYDR1TAB94 PO (11:37)
== END 2021-01-30 11:53 | disposition home or self-care (01) ==
LOC: ER 09:06
PROVIDERS: Emergency Medicine; Physician Assistant
DX: N13.2 Hydronephrosis with renal and ureteral calculous obstruction (principal); F17.210 Nicotine dependence, cigarettes, uncomplicated; J44.9 Chronic obstructive pulmonary disease, unspecified; Z88.8 Allergy status to other drugs, medicaments and biological substances; Z79.899 Other long term (current) drug therapy
CPT/HCPCS: 74176; 80053; 81001; 85025; 87086; 96374; 99285-25; J1885

== ENCOUNTER 2021-08-18 20:40 | Emergency (ER) | payer OTHER ==
[~2021-08-18] VITALS: Ht 149.9 cm; Wt 70.3 kg
[~2021-08-18 20:40] MED LIST changes: +HYDR1TAB94 PO
[2021-08-18 21:42] LABS: BASOPHILS ABSOLUTE AUTO 0.02 K/mm3 (0.00-0.23); BASOPHILS PERCENT AUTO 0 % (0-2); EOSINOPHILS PERCENT AUTO 0 % (0-6); Hemoglobin 13.3 g/dL (11.5-16.0); IMMATURE GRAN ABSOLUTE AUTO 0.04 K/mm3 (0.00-0.10); IMMATURE GRAN PERCENT AUTO 0 % (0-1); LYMPHOCYTES ABSOLUTE AUTO 1.16 K/mm3 (0.84-5.20); LYMPHOCYTES PERCENT AUTO 8 % (21-46); MONOCYTES ABSOLUTE AUTO 0.84 K/mm3 (0.16-1.47); MONOCYTES PERCENT AUTO 6 % (4-13); Mean Corpuscular HGB 31.5 pg (26.0-34.0); Mean Corpuscular HGB Conc 34.1 g/dL (31.5-36.5); Mean Corpuscular Volume 92 fL (80-100); Mean Platelet Volume 9.8 fL (9.1-12.4); NEUTROPHILS ABSOLUTE AUTO 12.75 K/mm3 (1.96-9.15); NEUTROPHILS PERCENT AUTO 86 % (41-73); Platelet Count 313 K/mm3 (150-400); RDW Coefficient Variation 12.5 % (11.7-14.2); RDW Standard Deviation 42.6 fL (35.1-46.3); Red Blood Cell Count 4.22 M/mm3 (3.80-5.20); White Blood Cell Count 14.81 K/mm3 (4.00-11.30)
[2021-08-19 00:12] LABS: Albumin, Blood 3.2 g/dL (3.4-5.0); Albumin/Globulin Ratio 0.8 (0.8-1.8); Bilirubin, Total 1.1 mg/dL (0.1-1.0); Bun/Creatinine Ratio 16.8 (12.0-20.0); Calcium, Blood 8.9 mg/dL (8.5-10.1); Creatinine, Blood 0.78 mg/dL (0.40-1.00); Potassium, Blood 3.2 mmol/L (3.5-5.5); Total Protein, Blood 7.2 g/dL (6.4-8.2)
[2021-08-19] MEDS ORDERED: Zithromax250 MG PO (00:59)
[2021-08-19] MEDS ORDERED: BENZ100A PO (00:59)
== END 2021-08-19 01:20 | disposition home or self-care (01) ==
LOC: ER 20:40
PROVIDERS: Emergency Medicine
DX: J44.1 Chronic obstructive pulmonary disease with (acute) exacerbation (principal); F17.210 Nicotine dependence, cigarettes, uncomplicated; Z88.5 Allergy status to narcotic agent; Z88.8 Allergy status to other drugs, medicaments and biological substances; Z79.899 Other long term (current) drug therapy
CPT/HCPCS: 71046; 80053; 84484; 85025; 93005; 93010; 99284-25; A9270

== ENCOUNTER → 2021-10-16 | Outpatient (CLI) | payer OTHER ==
[~2021-10-16] MED LIST changes: +Zithromax250 MG PO
== END | disposition home or self-care (01) ==
LOC: PLD 12:49 → LAB SHORT 12:49
DX: D22.5 Melanocytic nevi of trunk (principal)
CPT/HCPCS: 88305

== ENCOUNTER 2022-11-09 10:43 | Day surgery (SDC) | payer OTHER ==
[~2022-11-09] VITALS: Ht 149.9 cm; Wt 69.8 kg
[~2022-11-09 10:43] MED LIST changes: +ASPI325 PO; +B COMPLEX FORM0.4 MG PO; +Crestor40 MG PO; +FISH OIL 1,2001 EAC7 PO; +PRENATAL TABLE1 EAC2 PO; +THERA-D2000 UNIT PO
[2022-11-09 13:39] VITALS: BP 148/89
== END 2022-11-09 13:38 | disposition home or self-care (01) ==
LOC: ORSCSDS 10:43 → ORD 12:30 → ORSCSDS 13:38
PROVIDERS: Surgery
PROC: 0DBH8ZX Excision of Cecum, Via Natural or Artificial Opening Endoscopic, Diagnostic (ICD-10-PCS; principal; 2022-11-09 12:00)
DX: R93.3 Abnormal findings on diagnostic imaging of other parts of digestive tract (principal); D12.0 Benign neoplasm of cecum; R10.9 Unspecified abdominal pain; J44.9 Chronic obstructive pulmonary disease, unspecified; E78.5 Hyperlipidemia, unspecified; F17.210 Nicotine dependence, cigarettes, uncomplicated; Z79.82 Long term (current) use of aspirin; Z79.899 Other long term (current) drug therapy
CPT/HCPCS: 88305; J0461; J2001; J2405; J2704; J7120; Q9968

== ENCOUNTER 2022-11-12 11:52 | Inpatient (IN) | payer OTHER ==
[~2022-11-12] VITALS: Ht 149.9 cm; Wt 69.3 kg
[2022-11-12 12:28] LABS: BASOPHILS ABSOLUTE AUTO 0.03 K/mm3 (0.00-0.23); BASOPHILS PERCENT AUTO 0 % (0-2); EOSINOPHILS ABSOLUTE AUTO 0.06 K/mm3 (0.00-0.68); EOSINOPHILS PERCENT AUTO 1 % (0-6); Hematocrit 38.5 % (33.0-51.0); Hemoglobin 13.4 g/dL (11.5-16.0); IMMATURE GRAN ABSOLUTE AUTO 0.03 K/mm3 (0.00-0.10); IMMATURE GRAN PERCENT AUTO 0 % (0-1); LYMPHOCYTES ABSOLUTE AUTO 1.03 K/mm3 (0.84-5.20); LYMPHOCYTES PERCENT AUTO 13 % (21-46); MONOCYTES ABSOLUTE AUTO 0.55 K/mm3 (0.16-1.47); MONOCYTES PERCENT AUTO 7 % (4-13); Mean Corpuscular HGB 31.8 pg (26.0-34.0); Mean Corpuscular HGB Conc 34.8 g/dL (31.5-36.5); Mean Corpuscular Volume 91 fL (80-100); Mean Platelet Volume 10.8 fL (9.1-12.4); NEUTROPHILS ABSOLUTE AUTO 6.29 K/mm3 (1.96-9.15); NEUTROPHILS PERCENT AUTO 79 % (41-73); Platelet Count 293 K/mm3 (150-400); RDW Coefficient Variation 12.6 % (11.7-14.2); RDW Standard Deviation 41.4 fL (35.1-46.3); Red Blood Cell Count 4.21 M/mm3 (3.80-5.20); White Blood Cell Count 7.99 K/mm3 (4.00-11.30)
[2022-11-12 12:51] LABS: Albumin, Blood 3.5 g/dL (3.4-5.0); Albumin/Globulin Ratio 0.9 (0.8-1.8); Bilirubin, Total 1.4 mg/dL (0.1-1.0); Bun/Creatinine Ratio 20.1 (12.0-20.0); Calcium, Blood 9.1 mg/dL (8.5-10.1); Creatinine, Blood 0.85 mg/dL (0.40-1.00); Globulin, Blood 3.8 g/dL (2.2-4.0); Potassium, Blood 4.4 mmol/L (3.5-5.5); Total Protein, Blood 7.3 g/dL (6.4-8.2)
--- NOTE | 2022-11-12 18:49 | NUR ---
ARRIVAL PT ARRIVED TO 324 FROM ER. PT SLIDE TO BED FROM [facility], TOLERATED WELL. PT CONTINUES TO ENDORSE NAUSEA. AA0X4. CALL LIGHT PROVIDED EDUCATED ON USE. BELONGINGS WITH PATIENT. WILL GIVE REPORT TO ONCOMING RN.
[2022-11-12 19:26] VITALS: BP 141/67
[2022-11-12] MEDS ORDERED: Norco 5-325 Ta1 EACH PO (19:34)
[2022-11-12] MEDS ORDERED: DOCU100 PO (19:34)
--- NOTE | 2022-11-13 04:04 | NUR ---
SHIFT SUMMARY. SHIFT HAS BEEN UNREMARKABLE. PT ARRIVED AT SHIFT CHANGE. AOX4, PLEASANT, COOPERATIVE WITH CARE. COMPLAINTS OF PAIN/NAUSEA EARLY IN SHIFT THAT HAVE BEEN WELL MANAGED VIA PRN MEDICATIONS. HAS SLEPT THROUGH MOST OF SHIFT AFTER ASSESSMENT. FLUIDS RUNNING THROUGHOUT SHIFT. ROOM AIR. INDEPENDENT WITHIN ROOM. CALLS APPROPRIATELY. CLEAR LIQUID DIET. SCDs IN PLACE. BED LOCKED IN LOWEST POSITION. CALL LIGHT LEFT WITHIN REACH.
[2022-11-13 04:57] VITALS: BP 119/60
[2022-11-13 05:53] LABS: Bun/Creatinine Ratio 23.4 (12.0-20.0); Calcium, Blood 8.4 mg/dL (8.5-10.1); Creatinine, Blood 0.73 mg/dL (0.40-1.00); Potassium, Blood 3.2 mmol/L (3.5-5.5)
[2022-11-13 07:53] VITALS: BP 108/53
[2022-11-13] MEDS ORDERED: LIDOCAINE1 EACH TOP (11:42)
[2022-11-13] MEDS ORDERED: ONDA8 PO (11:43)
--- NOTE | 2022-11-13 13:09 | NUR ---
Pt sitting on edge of bed upon arrival. Pt is A&OX4 and denies pain, dyspnea, nausea, and anxiety at this time. Pt does report experiencing some pain when swallowing. Pt reports inability to take PO liquids as well. She states the liquid is coming back up now. Pt's SO Ke at bedside. Listened as Pt reports having children who live out of town. She states the cancer is at Stage 2 with treatment goals of cure. She reports receiving chemo and radiation treatments. Engaged in therapeutic conversation regarding code status. Educated on life sustaining treatments including risks and implications to CPR/Intubation. Pt reports her wishes as DNR. Pt agreeable to complete POLST. Assisted Pt with completing POLST and discussed options to choose from. Pt's resource recovery engineer in to visit and she request to finish POLST at a later time. Ended visit to allosw Pt to visit. Spoke with Dr Carr and discussed case. Placed DNR or for Pt in [facility] per V/O from Dr Carr. Plan: F/U to finish POLST form. Palliative Care will remain available
[2022-11-13 15:38] VITALS: BP 94/57
--- NOTE | 2022-11-13 18:01 | NUR ---
SHIFT SUMMARY: PT A&O X4. PT PLEASANT AND COOPERATIVE WITH ALL CARE. PT CONTINUES TO NOT KEEP ANY FOOD OR LIQUID DOWN. PT CONSULT WITH DR. BRUNER THIS AM. PEG TUBE PLACEMENT NOT APPROPRIATE AT THIS TIME. SIGNS/SYMPTOMS NEED TO BE TREATED/ADDRESSED PRIOR TO ANY DISCUSSION OF PEG TUBE. PT ALSO HAVING DIFFICULTY SWALLOWING. PT CONCERNED THAT SHE IS MISSING RADIATION DUE TO ADMIT TO HOSPITAL. NECK CT COMPLETED THIS AM. RESULTS IN CHART. CODE STATUS CHANGED FROM FULL TO DNR. PT HAVING SOME CHEST PAIN THIS SHIFT IN MID TO RIGHT SIDE OF CHEST. PT STATED THIS HAS HAPPENED BEFORE FROM STRESS. IV IN L. HAND PAINFUL. NEW IV PLACED IN RFA INFUSING D5W W/ 1/2 NS AND POTASSIUM REPLACEMENT. SCD'S IN PLACE. CALL LIGHT IN REACH. BED IN LOWEST POSITION. WILL CONTINUE TO MONITOR.
[2022-11-13 19:21] VITALS: BP 156/71
[2022-11-14 01:14] VITALS: BP 130/73
--- NOTE | 2022-11-14 05:14 | NUR ---
SHIFT SUMMARY: A/Ox4 AND COOPERATIVE WITH CARE. ANSWERS QUESTIONS APPROPRIATELY AND ABLE TO MAKE HER NEED KNOWN. NO ACUTE EVENTS OVERNIGHT FOR PT WAS ABLE TO GET INTERMITTENT EPISODES OF SLEEP T/O THE NIGHT. CARDIAC, REMAINS MED NO TELE WITH HR RANGING 70-80'S T/O THE NIGHT. SBP STABLE RANGING 130-150'S. INTERMITTENT EPISODES OF CHRONIC EPIGASTRIC PAIN, MANAGED WELL WITH PRN FENTANYL. MD AWARE OF THESE EPISODES PER PT REPORT. RESPIRATORY, MAINTAINS SPO2 >90% ON RA WITH NO REPORTS OF SOB OR DYSPNEA. GI/, ABLE TO IND ABULATE TO BATHROOM WITH MINIMAL TO NO STAFF ASSIST. 1 EPISODE OF INCONTINENT VOID LAST NIGHT. ASSESSED PT FOR RISKS OF ANY IGNITION SOURCES WELL BEHAVIORS FOR INCREASED RISKS OF FIRE DANGER. PT EDUCATED ON COMMON SOURCES OF IGNITION WELL NEED TO KEEP A SAFE ENVIRONMENT. PT VOICED UNDERSTANDING. NO NEW ORDERS AT THIS TIME, WILL REPORT TO ONCOMING RN. ARDEN LLANOS OF THIS NOTE
[2022-11-14 06:02] LABS: Bun/Creatinine Ratio 9.8 (12.0-20.0); Calcium, Blood 8.4 mg/dL (8.5-10.1); Creatinine, Blood 0.71 mg/dL (0.40-1.00); Potassium, Blood 3.6 mmol/L (3.5-5.5)
[2022-11-14 07:57] VITALS: BP 145/52
--- NOTE | 2022-11-14 11:48 | NUR ---
Brief supportive visit this AM. Pt reports mild frustration as unsure of plan of care. Offered therapeutic listening and validated concerns. Listened as Pt discusses her family. She reports having 3 sons and 2 daughters and 11 grandchildren. Assisted Pt with completing POLST. Pt expresses appreciation and request this RN to call her oncologist to make him aware of hospital admission. No other concerns reported at this time. Called and spoke with Dr Foley's office and relayed hospital admission per Pt request. Plan: Obtain copy of POLST upon hospitalist signature and deliver to medical records. Palliative Care will remain available
[2022-11-14 15:15] VITALS: BP 135/72
--- NOTE | 2022-11-14 18:30 | NUR ---
SHIFT SUMMARY PATIENT INDEPENDENT IN THE ROOM CONTINUES TO HAVE DIFFICULTY SWALLOWING BECAUSE OF PAIN AND FEELING LIKE THERE IS A GOLF BALL IN HER THROAT MAKING IT DIFFICULT TO SWALLOW. SPEECH EVALUATED PATIENT AND REQUESTED THAT SHE BE NPO FOR POSSIBLE ASPIRATION. DR MADRID DID A BEDSIDE SCOPE OF UPPER AIRWAY AND NASAL PASSAGE. SOME SWELLING NOTED BUT NOTHING TO EXPLAIN PATIENT'S COMPLAINTS. DR MADRID TO CONTACT DR COLVIN TO REVIEW CASE AND POSSIBLY HAVE GI SEE PATIENT SINCE THIS ALL GOT WORSE AFTER TAKING BOWEL PREP AND VOMITTING. SPEECH CONSIDERING A BARIUM SWALLOW.
[2022-11-14 20:03] VITALS: BP 164/68
[2022-11-15 03:10] VITALS: BP 138/58
--- NOTE | 2022-11-15 03:57 | NUR ---
SHIFT SUMMARY. SHIFT HAS BEEN MOSTLY UNREMARKABLE. PT AOX4, PLEASANT, COOPERATIVE WITH CARE. PT COMPLAINED OF BEING UNABLE TO SLEEP EARLY IN SHIFT. 5 MG VALIUM ORDERED BY HOSPITALIST NAHUM UPON NOTIFICATION OF THIS WHICH HAS ALLOWED PATIENT TO SLEEP THROUGH MOST OF SHIFT THEREAFTER. PAIN WELL MANAGED ON CURRENT MEDICATION REGIMEN. PT REMAINS NPO. INDPENDENT TO BATHROOM. FLUIDS RUNNING THROUGHOUT SHIFT WITHOUT DIFFICULTY. BED LOCKED IN LOWEST POSITION. CALL LIGHT LEFT WITHIN REACH.
[2022-11-15 07:24] VITALS: BP 131/60
--- NOTE | 2022-11-15 10:59 | NUR ---
JUAN WITH [facility] SET UP FOR APPT TO [facility] FOR RADIATION [place] AT 1230.
--- NOTE | 2022-11-15 18:06 | NUR ---
SHIFT SUMMARY PATIENT CONTINUES TO HAVE DIFFICULTY WITH SWALLOWING. PATIENT STATES IT FEELS LIKE A GOLF BALL IN HER THROAT. PATIENT [facility]. WAYNE SWALLOW CANCELLED TODAY AND RESCHEDULED FOR TOMORROW. PATIENT TO HAVE PEG TUBE PLACED AFTER BARIUM SWALLOW IF PATIENT IS NOT ABLE TO SWALLOW. PATIENT MEDICATED WITH FENTANYL NEEDED THROUGHOUT THE DAY.
[2022-11-15 19:38] VITALS: BP 144/68
[2022-11-16] VITALS (24 sets, daily range): BP systolic 88–189; BP diastolic 52–160
--- NOTE | 2022-11-16 05:04 | NUR ---
PATIENT A/O X4 UP INDEPENDENTLY IN ROOM. VSS, ON RA. PATIENT NPO, [facility]. PATIENT CONTINUES TO REPORT CHEST/THROAT PAIN THAT FEELS SHARP AND LIKE "TEARING" AT TIMES. FENTANYL GIVEN X1 THIS SHIFT TO TREAT. PATIENT SLEPT MOST OF THE NIGHT, CALLED ABOUT 0430 TO SAY THAT SHE WOULD LIKE A SLEEPING PILL. WHEN NURSE ARRIVED PATIENT WAS SOUND ASLEEP. NO NEW CONCERNS THIS SHIFT.
[2022-11-16 06:28] LABS: Bun/Creatinine Ratio 4.6 (12.0-20.0); Calcium, Blood 8.4 mg/dL (8.5-10.1); Creatinine, Blood 0.65 mg/dL (0.40-1.00); Potassium, Blood 3.3 mmol/L (3.5-5.5)
--- NOTE | 2022-11-16 13:03 | NUR ---
Brief supportive visit this afternoon. Reviewed plan of care with Pt and Pt reports being in agreement. Hopitalist signed POLST. Obtained copy of POLST and delivered to medical records via hospital tube system. Placed orginal POLST in Pt's belongings bag and instructed to hang on her refridgerator when she is D/C home. Pt reports no concerns at this time. Palliative Care will remain available
--- NOTE | 2022-11-16 14:50 | NUR ---
DISCHARGE AND SHIFT SUMMARY PATIENT DISCHARGED BACK TO THE [facility]. PATIENT ALERT AND INDEPENDENT IN THE ROOM. PATIENT DENIES ANY PAIN. PATIENT EAGER TO GO HOME TO CARE FOR HIS . NO WEAKNESS NOTED OT EVALUATED AND CLEARED PATIENT. PATIENT STATES THAT HE WAS EXERCISING PRIOR TO ADMISSION AND TRIED CLIMBING 4 FLIGHTS OF STAIRS X2 PRIOR TO ADMISSION. PATIENT ALSO ADMITTED THAT HE HAS NOT BEEN TAKING HIS DIURETICS FOR SOME TIME. PATIENT EDUCATED RELATED TO MEDICATIONS, MODERATE EXCERSISE AND PACING SELF. DISCHARGE INSTRUCTIONS REVIEWED WITH PATIENT AND DAUGHTER. IV DC'D. PATIENT TAKEN OUT VIA WHEELCHAIR. BELONGINGS SENT HOME WITH PATIENT. ROOM CHECK DONE BEFORE PATIENT LEFT.
--- NOTE | 2022-11-16 17:37 | NUR ---
History, Chart, Medications and Allergies reviewed before start of procedure. INSP AND EXP WHEEZES T/O. Patient confirms NPO status and agrees with scheduled surgery. Pre-Op teaching done. Pt verbalizes understanding.
--- NOTE | 2022-11-16 18:42 | NUR ---
11/16/22 1842 Jessica Benton SEE ANESTHESIA RECORD FOR SEDATION
--- NOTE | 2022-11-16 20:10 | NUR ---
SHIFT SUMMARY AND RAPID RESPONSE PATIENT ALERT, ORIENTED AND INDEPENDENT PRIOR TO PEG TUBE PLACEMENT. PATIENT HAD BARIUM SWALLOW THEN PEG TUBE PLACEMENT THIS EVENING. POST OP PATIENT AROUSABLE ON ARRIVAL WITH NO IV ACCESS. PATIENT QUICKLY BECAME DIFFICULT TO AROUSE AND UNABLE TO GET AN ACCURATE BIOX. RAPID RESPONSE CALLED, IV ACCESS ESTABLISHED. FLUID BOLUS GIVEN, STERNAL RUB AND STIMULATION TO GET PATIENT AWAKE, OXYGEN PLACED SINCE UNABLE TO GET AN ACCURATE READING. DR HOOKS PRESENT FOR RAPID. WITHIN 15 MINUTES PATIENT ABLE TO STAY AWAKE AND INTERACT WITH STAFF. PATIENT EDUCATED ON SAFETY RISK AND AMBULATING POST OP. ENCOURAGED TO USE CALL LIGHT AND BED ALARM SET. FAMILY NOTIFIED OF RAPID RESPONSE AND CAME IN TO SEE PATIENT.
--- NOTE | 2022-11-16 23:54 | NUR ---
2345: PT's BP WAS 89/55 AND PULSE 53. 2350: BP RECHECK WAS 100/63 AND PULSE 75 AFTER ELEVATING FEET OF BED. WCTM.
--- NOTE | 2022-11-17 03:22 | NUR ---
END OF SHIFT SUMMARY ASSUMED CARE OF PT, REPORT RECEIVED FROM TESSIE JOHNSON. PT A&O x4, ON CONTINUOUS PULSE OX. PT PLEASANT AND COOPERATIVE WITH CARE PROVIDED. PT C/O LEFT SIDE PAIN UNDERNEATH BREAST L/RIBCAGE AREA. PAIN MANAGED WITH PRN IV FENTANYL, WHICH WAS EFFECTIVE. PT STILL NPO, PEG TUBE PLACED YESTERDAY. PT ON 2L VIA NC, LUNG SOUNDS DIMINISHED BILATERALLY WITH EXPIRATORY WHEEZES HEARD. NO EDEMA TO BLE NOTED. PT COMPLIANT WITH SCD's THROUGHOUT THE NIGHT. BP HAS BEEN RUNNING SOFT. FOOT OF BED ELEVATED. PT ABLE TO MAKE NEEDS KNOWN. CALL LIGHT WITHIN REACH, WCTM.
[2022-11-17 04:58] VITALS: BP 120/74
[2022-11-17 05:30] LABS: Magnesium, Blood 1.6 mg/dL (1.6-2.4); Phosphorus, Blood 3.6 mg/dL (2.5-4.9)
[2022-11-17 07:26] VITALS: BP 110/68
[2022-11-17 07:55] LABS: Calcium, Blood 8.3 mg/dL (8.5-10.1); Creatinine, Blood 0.75 mg/dL (0.40-1.00); Potassium, Blood 3.9 mmol/L (3.5-5.5)
[2022-11-17 14:46] VITALS: BP 131/51
--- NOTE | 2022-11-17 16:43 | NUR ---
DAYSHIFT SUMMARY Patient is alert & oriented x4. S/p PEG tube placment on 11/16/22. Patient reporting pain LUQ/underneath left breast. Dressing covering PEG site is CDI, no exudate noted. Started tube feeds this shift, started tube feeds, patient became N/V soon after. MD notified, restarted feed at 20mL/hr, and slowly increased rate. LUMBER KILN OPERATOR assessed patient at bedside, patient c/o discomfort with eating. D5NS infusing continously. Vitals stable. Will continue plan of care.
[2022-11-17 19:29] VITALS: BP 133/59
[2022-11-18 05:28] VITALS: BP 141/65
[2022-11-18 06:11] LABS: Bun/Creatinine Ratio 7.7 (12.0-20.0); Calcium, Blood 8.9 mg/dL (8.5-10.1); Creatinine, Blood 0.78 mg/dL (0.40-1.00); Magnesium, Blood 1.7 mg/dL (1.6-2.4); Phosphorus, Blood 3.3 mg/dL (2.5-4.9); Potassium, Blood 3.7 mmol/L (3.5-5.5)
[2022-11-18 07:32] VITALS: BP 142/54
--- NOTE | 2022-11-18 07:50 | NUR ---
PT REQUESTED TO DISCONTINUE TELE LAST NIGHT, HAD BEEN STABLE PER REPORT AND WAS NSR WITH TWO CHECKS WITH TELE PUBLIC POLICY PROFESSOR, MD WAS OKAY WITH DC SO WE REMOVED TELE MONITOR. FENTANYL GIVEN ORDERED ON PATIENT REQUEST. PT STATES THE CURRENT TUBE FEEDING ORDERS ARE TOO MUCH TO TOLERATE, STATES SHE ONLY EATS 1-2 SMALL MEALS PER DAY AT HOME. FIRE SAFETY REVIEWED.
--- NOTE | 2022-11-18 10:40 | NUR ---
MD CALL MS FALCON SAID THAT SHE NORMALLY EATS ONLY ONE MEAL PER DAY AT HOME, SHE DOES NOT WANT TO HAVE THE TUBE FEEDING AT THIS TIME. SHE ATE HER OATMEAL FOR BREAKFAST AND SAID THAT SHE WOULD RATHER HOLD OFF ON TUBE FEEDING AND SEE IF SHE CAN EAT LUNCH. SHE HAS NOT DRANK FLUIDS AND SAID AT HOME SHE NORMALLY DRINKS 6 CANS PEPSI/DAY, AND DESPITE EDUCATION SAID THAT SHE WISHES TO CONTINUE DOING SO. I GAVE HER 150CC WATER VIA PEG TUBE AND SHE SAID THIS WAS ALL SHE COULD TOLERATE AND C/O FEELING NAUSEAUS. GIVEN JUSTIN AND DR GILL CALLED TO DISCUSS CARE. DR GARCIA SAID THAT IT'S OK TO WORK WITH WHAT MS FALCON WANTS IN TERMS OF DIET AND TUBE FEEDING AND TO MONITOR. SHE IS STILL GETTING 100CC/HR IVF AT THIS TIME.
--- NOTE | 2022-11-18 15:25 | NUR ---
SHIFT SUMMARY MS FALCON ATE OATMEAL FOR BREAKFAST, ALL OF THE SOUP AND MOST OF THE BURRITO FOR LUNCH. SHE HAS BEEN ENCOURAGED TO DRINK FLUIDS, HER FLUID INTAKE IS LOW BUT SHE IS WORKING ON DRINKING TEA WITH A SPOON CURRENTLY. SHE DOES NOT WANT TUBE FEEDS OR WATER VIA PEG TUBE AT THIS TIME. IVF WERE STOPPED. PIV WAS REMOVED IT WAS LEAKING AND MS FALCON PREFERS TO TAKE PO MEDS AND NOT HAVE PIV REPLACED. SHE SAID SHE FEELS MUCH BETTER AND FEELS LIKE SHE COULD GO HOME TOMORROW. SITTING UP IN THE CHAIR NOW. SHE HAS BEEN INDEPENDENT UP TO THE BATHROOM. CALL LIGHT IN REACH.
[2022-11-18 17:01] VITALS: BP 147/60
[2022-11-18 20:50] VITALS: BP 151/69
[2022-11-19 03:50] VITALS: BP 153/56
--- NOTE | 2022-11-19 06:39 | NUR ---
UNEVENTFUL NIGHT. PT REQUESTED PAIN MEDS X2, NORCO IS EFFECTIVE FOR PAIN. TOLERATING PO MEALS. NO TUBE FEEDS GIVEN. UP IN CHAIR SBA. VSS ON RA. PEG TUBE SECURE. NO IV ACCESS ORDER. FIRE SAFETY REVIEWED.
[2022-11-19 07:59] VITALS: BP 130/50
[2022-11-19 10:07] LABS: Magnesium, Blood 1.7 mg/dL (1.6-2.4)
[2022-11-19] MEDS ORDERED: ALBU90OI INH (10:16)
--- NOTE | 2022-11-19 11:13 | NUR ---
pt has been discharged to home, pit supervisor spoke with her regarding feeds, this nurse went over using her tube, and discharge instructions, handed her a hard copy for [facility], gave her a piston syringe for her tube, she doesn't have an iv, new meds faxed to her pharmacy, left with all belongings via wheelchair with documentation consultant in attendence.
== END 2022-11-19 11:12 | disposition home or self-care (01) | DRG 148 ==
LOC: ER 11:52 → MEDS 18:13
PROVIDERS: Emergency Medicine; Internal Medicine; Nurse Practitioner Acute Care; Surgery; ADMIT Internal Medicine
PROC: 0DH64UZ Insertion of Feeding Device into Stomach, Percutaneous Endoscopic Approach (ICD-10-PCS; principal; 2022-11-16 10:30)
DX: C32.9 Malignant neoplasm of larynx, unspecified (principal); R13.10 Dysphagia, unspecified; E78.5 Hyperlipidemia, unspecified; K22.2 Esophageal obstruction; Z66 Do not resuscitate; K21.9 Gastro-esophageal reflux disease without esophagitis; M81.0 Age-related osteoporosis without current pathological fracture; J43.9 Emphysema, unspecified; F17.210 Nicotine dependence, cigarettes, uncomplicated; I10 Essential (primary) hypertension; E87.6 Hypokalemia; K59.00 Constipation, unspecified; K44.9 Diaphragmatic hernia without obstruction or gangrene; M54.9 Dorsalgia, unspecified; M54.2 Cervicalgia; G89.29 Other chronic pain; I25.10 Atherosclerotic heart disease of native coronary artery without angina pectoris; Z92.3 Personal history of irradiation; Z79.51 Long term (current) use of inhaled steroids; Z92.21 Personal history of antineoplastic chemotherapy; Z88.8 Allergy status to other drugs, medicaments and biological substances; Z79.899 Other long term (current) drug therapy; Z98.890 Other specified postprocedural states; Z90.89 Acquired absence of other organs; Z85.118 Personal history of other malignant neoplasm of bronchus and lung; Z79.82 Long term (current) use of aspirin; Z98.891 History of uterine scar from previous surgery; Z90.49 Acquired absence of other specified parts of digestive tract; Z98.51 Tubal ligation status
CPT/HCPCS: 36415; 70491; 71045; 74230; 80048; 80053; 82947; 83735; 84100; 84484; 85025; 92526; 92610; 92611; 93005; 93010; 94640; 94664; 94760; 96361; 96374; 96375; 99285-25; A9270; C9113; J1200; J1885; J2001; J2270; J2405; J2704; J2765; J3010; J3360; J3480; J7030; J7040; J7042; J7050; Q9967

== ENCOUNTER 2022-12-01 21:55 | Emergency (ER) | payer OTHER ==
[~2022-12-01] VITALS: Ht 149.9 cm; Wt 66.2 kg
[~2022-12-01 21:55] MED LIST changes: +DOCU100 PO; +LIDOCAINE1 EACH TOP; +Norco 5-325 Ta1 EACH PO; +ONDA8 PO
[2022-12-01 22:49] LABS: BASOPHILS ABSOLUTE AUTO 0.03 K/mm3 (0.00-0.23); BASOPHILS PERCENT AUTO 0 % (0-2); EOSINOPHILS ABSOLUTE AUTO 0.13 K/mm3 (0.00-0.68); EOSINOPHILS PERCENT AUTO 2 % (0-6); Hematocrit 40.7 % (33.0-51.0); Hemoglobin 13.8 g/dL (11.5-16.0); IMMATURE GRAN ABSOLUTE AUTO 0.02 K/mm3 (0.00-0.10); IMMATURE GRAN PERCENT AUTO 0 % (0-1); LYMPHOCYTES ABSOLUTE AUTO 0.91 K/mm3 (0.84-5.20); LYMPHOCYTES PERCENT AUTO 11 % (21-46); MONOCYTES ABSOLUTE AUTO 0.48 K/mm3 (0.16-1.47); MONOCYTES PERCENT AUTO 6 % (4-13); Mean Corpuscular HGB 31.1 pg (26.0-34.0); Mean Corpuscular HGB Conc 33.9 g/dL (31.5-36.5); Mean Corpuscular Volume 92 fL (80-100); Mean Platelet Volume 11.5 fL (9.1-12.4); NEUTROPHILS ABSOLUTE AUTO 6.87 K/mm3 (1.96-9.15); NEUTROPHILS PERCENT AUTO 81 % (41-73); Platelet Count 391 K/mm3 (150-400); RDW Standard Deviation 43.5 fL (35.1-46.3); Red Blood Cell Count 4.44 M/mm3 (3.80-5.20); White Blood Cell Count 8.44 K/mm3 (4.00-11.30)
[2022-12-01 23:59] LABS: Albumin, Blood 3.7 g/dL (3.4-5.0); Albumin/Globulin Ratio 1.1 (0.8-1.8); Bilirubin, Total 0.8 mg/dL (0.1-1.0); Bun/Creatinine Ratio 27.2 (12.0-20.0); Calcium, Blood 9.4 mg/dL (8.5-10.1); Creatinine, Blood 0.96 mg/dL (0.40-1.00); Globulin, Blood 3.5 g/dL (2.2-4.0); Magnesium, Blood 2.2 mg/dL (1.6-2.4); Potassium, Blood 4.6 mmol/L (3.5-5.5); Total Protein, Blood 7.2 g/dL (6.4-8.2)
[2022-12-02] MEDS ORDERED: OXYC1L PT (05:03)
[2022-12-02] MEDS ORDERED: PHENERGAN25 MG PR (06:26)
[2022-12-02 06:45] VITALS: BP 105/74
== END 2022-12-02 06:58 | disposition home or self-care (01) ==
LOC: ER 21:55
PROVIDERS: Emergency Medicine
DX: R10.9 Unspecified abdominal pain (principal); R11.2 Nausea with vomiting, unspecified; C32.9 Malignant neoplasm of larynx, unspecified; J44.9 Chronic obstructive pulmonary disease, unspecified; F17.210 Nicotine dependence, cigarettes, uncomplicated; Z88.8 Allergy status to other drugs, medicaments and biological substances; Z88.5 Allergy status to narcotic agent; Z79.82 Long term (current) use of aspirin; Z79.899 Other long term (current) drug therapy
CPT/HCPCS: 80053; 83605; 83690; 83735; 85025; 96361; 96374; 96375; 96376; 99284-25; J1170; J2405; J7030

== ENCOUNTER 2022-12-06 12:00 | Emergency (ER) | payer OTHER ==
[~2022-12-06] VITALS: Ht 149.9 cm; Wt 64.4 kg
[~2022-12-06 12:00] MED LIST changes: +OXYC1L PT; +PHENERGAN25 MG PR
[2022-12-06] MEDS ORDERED: REGLAN1013 PO (12:20)
[2022-12-06 13:12] LABS: BASOPHILS ABSOLUTE AUTO 0.03 K/mm3 (0.00-0.23); BASOPHILS PERCENT AUTO 0 % (0-2); EOSINOPHILS ABSOLUTE AUTO 0.08 K/mm3 (0.00-0.68); EOSINOPHILS PERCENT AUTO 1 % (0-6); Hematocrit 38.9 % (33.0-51.0); Hemoglobin 12.8 g/dL (11.5-16.0); IMMATURE GRAN ABSOLUTE AUTO 0.01 K/mm3 (0.00-0.10); IMMATURE GRAN PERCENT AUTO 0 % (0-1); LYMPHOCYTES ABSOLUTE AUTO 0.79 K/mm3 (0.84-5.20); LYMPHOCYTES PERCENT AUTO 10 % (21-46); MONOCYTES ABSOLUTE AUTO 0.62 K/mm3 (0.16-1.47); MONOCYTES PERCENT AUTO 8 % (4-13); Mean Corpuscular HGB 30.8 pg (26.0-34.0); Mean Corpuscular HGB Conc 32.9 g/dL (31.5-36.5); Mean Corpuscular Volume 94 fL (80-100); Mean Platelet Volume 10.5 fL (9.1-12.4); NEUTROPHILS ABSOLUTE AUTO 6.64 K/mm3 (1.96-9.15); NEUTROPHILS PERCENT AUTO 81 % (41-73); Platelet Count 334 K/mm3 (150-400); RDW Coefficient Variation 13.1 % (11.7-14.2); RDW Standard Deviation 44.5 fL (35.1-46.3); Red Blood Cell Count 4.16 M/mm3 (3.80-5.20); White Blood Cell Count 8.17 K/mm3 (4.00-11.30)
[2022-12-06 13:32] LABS: Albumin, Blood 3.8 g/dL (3.4-5.0); Albumin/Globulin Ratio 1.1 (0.8-1.8); Bilirubin, Direct 0.2 mg/dL (0.0-0.3); Bilirubin, Indirect 0.5 mg/dL (0.1-0.7); Bilirubin, Total 0.7 mg/dL (0.1-1.0); Bun/Creatinine Ratio 26.1 (12.0-20.0); Calcium, Blood 9.5 mg/dL (8.5-10.1); Creatinine, Blood 0.88 mg/dL (0.40-1.00); Globulin, Blood 3.6 g/dL (2.2-4.0); Total Protein, Blood 7.4 g/dL (6.4-8.2)
[2022-12-06] MEDS ORDERED: TRANSDERM-SCOP1 EA10 TD (16:27)
[2022-12-06] MEDS ORDERED: CARAFATE1 GM/10 M1 PO (16:40)
[2022-12-06 17:02] VITALS: BP 125/58
== END 2022-12-06 17:12 | disposition home or self-care (01) ==
LOC: ER 12:00
PROVIDERS: Student in an Organized Health Care Education/Training Program
DX: C15.9 Malignant neoplasm of esophagus, unspecified (principal); K21.00 Gastro-esophageal reflux disease with esophagitis, without bleeding; K44.9 Diaphragmatic hernia without obstruction or gangrene; R07.9 Chest pain, unspecified; F17.210 Nicotine dependence, cigarettes, uncomplicated; E78.5 Hyperlipidemia, unspecified; J44.9 Chronic obstructive pulmonary disease, unspecified; Z79.51 Long term (current) use of inhaled steroids; Z79.82 Long term (current) use of aspirin; Z79.899 Other long term (current) drug therapy; Z88.5 Allergy status to narcotic agent; Z88.8 Allergy status to other drugs, medicaments and biological substances
CPT/HCPCS: 49465; 71045; 80048; 80076; 83735; 84484; 85025; 93005; 93010; 96361; 96374; 96375; 96376; 99285-25; A9270; J1170; J1790; J7030; Q9963

== ENCOUNTER → 2022-12-11 | Outpatient (CLI) | payer OTHER ==
[~2022-12-11] MED LIST changes: +CARAFATE1 GM/10 M1 PO; +REGLAN1013 PO; +TRANSDERM-SCOP1 EA10 TD
== END | disposition home or self-care (01) ==
LOC: LAB 12:19 → LAB SHORT 12:19
DX: S10.91XA Abrasion of unspecified part of neck, initial encounter (principal)
CPT/HCPCS: 87070; 87077; 87147; 87186; 87205

== ENCOUNTER 2022-12-24 16:08 | Inpatient (IN) | payer OTHER ==
[~2022-12-24] VITALS: Ht 149.9 cm; Wt 63.8 kg
[2022-12-24 18:02] LABS: Hematocrit 38.4 % (33.0-51.0); Hemoglobin 12.9 g/dL (11.5-16.0); Mean Corpuscular HGB 30.9 pg (26.0-34.0); Mean Corpuscular HGB Conc 33.6 g/dL (31.5-36.5); Mean Corpuscular Volume 92 fL (80-100); Mean Platelet Volume 10.3 fL (9.1-12.4); Platelet Count 300 K/mm3 (150-400); RDW Coefficient Variation 13.1 % (11.7-14.2); RDW Standard Deviation 43.9 fL (35.1-46.3); Red Blood Cell Count 4.17 M/mm3 (3.80-5.20); White Blood Cell Count 8.65 K/mm3 (4.00-11.30)
[2022-12-24 18:33] LABS: Albumin, Blood 3.3 g/dL (3.4-5.0); Albumin/Globulin Ratio 0.9 (0.8-1.8); Bilirubin, Total 0.7 mg/dL (0.1-1.0); Bun/Creatinine Ratio 10.3 (12.0-20.0); Calcium, Blood 9.4 mg/dL (8.5-10.1); Creatinine, Blood 0.77 mg/dL (0.40-1.00); Globulin, Blood 3.7 g/dL (2.2-4.0); Potassium, Blood 3.1 mmol/L (3.5-5.5)
[2022-12-24 18:35] LABS: BASOPHILS PERCENT MAN 0 % (0-2); EOSINOPHILS PERCENT MAN 0 % (0-6); LYMPHOCYTES ABSOLUTE MAN 0.25 K/mm3 (0.84-5.20); LYMPHOCYTES PERCENT MAN 3 % (21-46); MONOCYTES ABSOLUTE MAN 0.25 K/mm3 (0.16-1.47); MONOCYTES PERCENT MAN 3 % (4-13); NEUTROPHILS ABSOLUTE MAN 8.13 K/mm3 (1.96-9.15); SEG NEUTROPHILS PERCENT MAN 94 % (41-73); TOTAL CELLS COUNTED 100
[2022-12-24 22:06] VITALS: BP 106/65
[2022-12-24 23:21] LABS: Source, Urine Clean Catch
[2022-12-24 23:26] LABS: Bilirubin, Urine Neg (Neg); Blood, Urine Neg (Neg); Glucose Qualitative, Urine Neg (Neg); Ketones, Urine 2+ (Neg); Leukocyte Esterase, Urine Neg (Neg); Nitrite, Urine Neg (Neg); Protein, Urine Neg (Neg); Urobilinogen, Urine NORM (Normal)
[2022-12-24 23:49] LABS: Appearance, Urine Clear (Clear); Color, Urine Pale Yellow (P-Yellow)
--- NOTE | 2022-12-25 03:13 | NUR ---
PT ADMITTED TO ROOM 364 AT 2200 /- A/O X4, AMBULATED FROM RNEY TO BED SBA. ACTIVELY WRETCHING INTO EMESIS BAG, MEDICATED WITH REGLAN AND STARTED IVF. PT AWARE SHE IS NPO. PT AMBULATED TO BATHROOM SBA AND VOIDED, URINE CLEAR, MED YELLOW. SENT UA. SET UP SCD'S. ORIENTED TO ROOM AND CALL LIGHT. PT C/O CLAROS AND EPIGASTRIC PAIN, THINKS IT'S FROM HER STOMACH BEING EMPTY. CALLED HOSPITALIST AND OBTAINED ORDER FOR NORCO, MEDICATED FOR PAIN.
[2022-12-25 04:29] VITALS: BP 104/55
--- NOTE | 2022-12-25 05:44 | NUR ---
SUMMARY- PT A/O X4, SBA TO BATHROOM. USES CALL LIGHT TO MAKE NEEDS KNOWN. MEDICATED HS WITH NORCO FOR HEADACHE AND EPIGASTRIC PAIN. USED PEG TO ADMINISTER MEDICATION. PT FELT NAUSEATED WITH JUST 50ML OF WATER BUT SETTLED OK. APPERAED TO HAVE SLEPT THROUGH THE NIGHT. IVF INFUSING. PT REMAINS NPO. PT'S URINE VERY CONCENTRATED. HAD 2L FLUID IN ED AND 750ML THIS SHIFT. WILL REPORT TO DAY RN
[2022-12-25 06:01] LABS: Calcium, Blood 7.9 mg/dL (8.5-10.1); Creatinine, Blood 0.73 mg/dL (0.40-1.00); Magnesium, Blood 1.7 mg/dL (1.6-2.4); Potassium, Blood 3.1 mmol/L (3.5-5.5)
[2022-12-25 08:10] VITALS: BP 129/58
[2022-12-25 15:53] VITALS: BP 143/61
--- NOTE | 2022-12-25 19:17 | NUR ---
SHIFT SUMMARY PT A&OX4 AND PLEASANT. PT STARTED ON TUBE FEEDING THROUGH PEG TUBE TODAY. PT SEEMS TO BE TOLERATING WELL AND HAS HAD NO EPISODES OF VOMITTING OR C/O NAUSEA. PT RECIEVED POTASSIUM CHLORIDE TODAY AND TOLERATED WELL. VSS. SOLAR SITE ASSESSMENT SPECIALIST AND FAMILY AT BEDSIDE T/O DAY. BED IN LOWEST POSITION AND CALL LIGHT IN REACH.
[2022-12-25 19:28] VITALS: BP 173/69
[2022-12-26 02:36] VITALS: BP 149/71
[2022-12-26 05:27] LABS: Magnesium, Blood 1.5 mg/dL (1.6-2.4)
[2022-12-26 05:28] LABS: Bun/Creatinine Ratio 8.8 (12.0-20.0); Calcium, Blood 7.8 mg/dL (8.5-10.1); Creatinine, Blood 0.68 mg/dL (0.40-1.00); Potassium, Blood 3.4 mmol/L (3.5-5.5)
--- NOTE | 2022-12-26 06:22 | NUR ---
SHIFT SUMMARY NOC PT A/O X 4. PLEASANT AND COOPERATIVE WITH CARE. NO ACUTE CHANGES TO REPORT. PT IS NPO PENDING ST EVALUATION. PT RECEIVING NUTRITION THROUGH PEG TUBE @ 15 ML/HR, AND HYDRATION OF NS @ 100 ML/HR. PT HAD BEEN 1PA TO BS MULTIPLE TIMES DURING SHIFT. PT HAD C/O OF NAUSEA AND PAIN AT BEGINNING OF SHIFT AND MEDICATED PER EMAR WITH PO RX CRUSHED AND DELIVERED VIA PEG TUBE. PT IS CURRENTLY RESTING WITH BED IN LOWEST POSITION, AND CALL LIGHT WITHIN REACH.
[2022-12-26 06:53] VITALS: BP 122/61
[2022-12-26 15:44] VITALS: BP 128/61
--- NOTE | 2022-12-26 19:35 | NUR ---
SHIFT SUMMARY PT A&OX4 AND PLEASANT. PT TOLERATING PEG TUBE FEEDING WELL. PT ALSO STARTED ON PO FOOD INTAKE TODAY AND TOLERATED WELL. NO C/O PAIN. VSS. NO ACUTE CHANGES THIS SHIFT. BED IN LOWEST POSITION AND CALL LIGHT IN REACH.
[2022-12-26 19:51] VITALS: BP 137/62
[2022-12-26 20:29] VITALS: BP 135/66
[2022-12-27 03:00] VITALS: BP 125/54
--- NOTE | 2022-12-27 06:49 | NUR ---
SHIFT SUMMARY PATIENT WITH HEADACHE BEGINNING OF SHIFT, MEDICATED PER EMAR WITH RELIEF. PATIENT DENIES ANY OTHER PAIN OR ISSUES, DENIES SHORTNESS OF BREATH, DEVELOPING COUGH AND WHEEZING.BED IN LOW POSITION. CALL LIGHT IN REACH.
[2022-12-27 07:22] LABS: BASOPHILS ABSOLUTE AUTO 0.01 K/mm3 (0.00-0.23); BASOPHILS PERCENT AUTO 0 % (0-2); EOSINOPHILS ABSOLUTE AUTO 0.13 K/mm3 (0.00-0.68); EOSINOPHILS PERCENT AUTO 4 % (0-6); Hematocrit 32.3 % (33.0-51.0); Hemoglobin 10.6 g/dL (11.5-16.0); IMMATURE GRAN ABSOLUTE AUTO 0.01 K/mm3 (0.00-0.10); IMMATURE GRAN PERCENT AUTO 0 % (0-1); LYMPHOCYTES ABSOLUTE AUTO 0.57 K/mm3 (0.84-5.20); LYMPHOCYTES PERCENT AUTO 18 % (21-46); MONOCYTES ABSOLUTE AUTO 0.31 K/mm3 (0.16-1.47); MONOCYTES PERCENT AUTO 10 % (4-13); Mean Corpuscular HGB 30.8 pg (26.0-34.0); Mean Corpuscular HGB Conc 32.8 g/dL (31.5-36.5); Mean Corpuscular Volume 94 fL (80-100); Mean Platelet Volume 11.1 fL (9.1-12.4); NEUTROPHILS ABSOLUTE AUTO 2.06 K/mm3 (1.96-9.15); NEUTROPHILS PERCENT AUTO 67 % (41-73); Platelet Count 222 K/mm3 (150-400); RDW Coefficient Variation 13.4 % (11.7-14.2); RDW Standard Deviation 46.2 fL (35.1-46.3); Red Blood Cell Count 3.44 M/mm3 (3.80-5.20); White Blood Cell Count 3.09 K/mm3 (4.00-11.30)
[2022-12-27 07:38] VITALS: BP 133/67
[2022-12-27 07:43] LABS: Albumin, Blood 2.3 g/dL (3.4-5.0); Anion Gap 5 mmol/L (6-16); Blood Urea Nitrogen 4 mg/dL (8-24); Bun/Creatinine Ratio 6.5 (12.0-20.0); CO2, Blood 26 mmol/L (21-32); Chloride, Blood 111 mmol/L (98-108); Creatinine, Blood 0.61 mg/dL (0.40-1.00); Glomerular Filtration Rate 93 (60-); Glucose, Blood 88 mg/dL (70-99); Phosphorus, Blood 2.7 mg/dL (2.5-4.9); Potassium, Blood 3.6 mmol/L (3.5-5.5); Sodium, Blood 142 mmol/L (136-145)
--- NOTE | 2022-12-27 09:00 | NUR ---
pt laying in bed awake a/ox3, pleasant and cooperative with care, follows commands well, states she slept ok, having some lower quad cramping this am, lungs have faint exp wheezing, dim in bases, resp even and unlabored, no cough noted, hrr, power glide to piyush, site is clear and patent, no edema noted, ppp+1, cap refill<3sec, vs stable, afebrile, btx4, abd flat soft some tenderness, peg tub in place running jevity at 15mls/hr, residual 30mls, states she didn't want too much flush as her stomach is mildly upset, flushes well, having loose stools, voids without diff, skin c/w/d, maew, some weakness, bea, call light in reach.
[2022-12-27 15:37] VITALS: BP 122/56
--- NOTE | 2022-12-27 18:30 | NUR ---
pt has had an uneventful day, dietion changed her tube feed to bolus, medicated for pain twice, no further changes this shift. call light in reach.
[2022-12-27 19:15] VITALS: BP 144/60
[2022-12-28 02:40] VITALS: BP 160/83
[2022-12-28 05:00] LABS: Hematocrit 31.9 % (33.0-51.0); Hemoglobin 10.3 g/dL (11.5-16.0); Mean Corpuscular HGB 30.2 pg (26.0-34.0); Mean Corpuscular HGB Conc 32.3 g/dL (31.5-36.5); Mean Corpuscular Volume 94 fL (80-100); Mean Platelet Volume 10.5 fL (9.1-12.4); Platelet Count 221 K/mm3 (150-400); RDW Coefficient Variation 13.4 % (11.7-14.2); RDW Standard Deviation 45.8 fL (35.1-46.3); Red Blood Cell Count 3.41 M/mm3 (3.80-5.20); White Blood Cell Count 3.09 K/mm3 (4.00-11.30)
[2022-12-28 05:20] LABS: Creatinine, Blood 0.67 mg/dL (0.40-1.00); Magnesium, Blood 1.7 mg/dL (1.6-2.4); Phosphorus, Blood 3.1 mg/dL (2.5-4.9); Potassium, Blood 3.8 mmol/L (3.5-5.5)
[2022-12-28 07:21] VITALS: BP 129/63
--- NOTE | 2022-12-28 07:27 | NUR ---
SHIFT SUMMARY PATIENT TOLERATING INCREASE TO 25ML HOURLY OF FEEDING AND 100ML OF FLUSH AFTER. SHE DID HAVE SOME PRESSURE AND REQUESTED TO HAVE BREAK DURING NIGHT, FEED RATE DECREASED TO 15ML/HR FOR 1 HOUR AND THEN INCREASED TO 20ML/HR AND THEN 25ML/H AT 0430. PATIENT WITH HEADACHE AND ABDOMINAL PAIN, MEDICATED PER EMAR WITH RELIEF. BED IN LOW POSITION. CALL LIGHT IN REACH. PATIENT CALLS APPROPRIATELY
--- NOTE | 2022-12-28 07:41 | NUR ---
pt sitting up on the side of the bed, went for radiology study this am, a/ox4, pleasant and cooperative with care, follows commands well, reports pain at 5/10 this am, lungs have exp wheezing t/o, dim in bases, on r/a, no cough noted, hrr, no edema noted, ppp+1, cap refill <3sec, vs stable, afebrile, iv is site is power glide to piyush site is clear and patent, infusing ns as ordered, btx4, abd flat soft nontender, peg tube in place, site is clear, flushes well, voids via bsc, gets to it indep, maew, bea, skin c/w/d, call light in reach.
--- NOTE | 2022-12-28 12:13 | NUR ---
Spoke with Dr Thompson and discussed case. Pt may benefit from completing POLST. Pt to D/C home today. Pt is known to this pattern chart writer from previous hospital stay. Pt reports being in agreement with D/C plan. Listened as she reports plan to follow with oncology in March to check status of her cancer. She reports missing 1 chemo therapy treatment and 3 radiation treatments. She reports not being ready for hospice yet as she does not know the status of her cancer. Engaged in therapeutic discussion regarding code status. Pt completed POLST with this RN last hospital stay with wishes for DNR. She reports changing her mind and understands the risks and implications. She states wanting to complete new POLST reflecting her current wishes. Assisted Pt with completing POLST. Wishes are CPR and Full Treatment. Pt expresses appreciation and reports no other concerns. Placed POLST on Dr Tohmpson's desk in dictation room per her request. She will sign POLST when she can.
[2022-12-28] MEDS ORDERED: BANATROL PLUS1 EAC1 PO (13:00)
[2022-12-28] MEDS ORDERED: IPRAT-ALBUT 0.5-3 ML INH (13:02)
[2022-12-28] MEDS ORDERED: B-1100 M1 PO (13:03)
--- NOTE | 2022-12-28 14:12 | NUR ---
Pt has been discharged to home, iv removed intact, new medications faxed to [facility], went over discharge instructions with her, she verbalized understanding, her hard copy prescription was placed in her discharge folder, she is aware, left via wheelchair with poker manager in attendence.
== END 2022-12-28 14:30 | disposition home health service (06) | DRG 392 ==
LOC: ER 16:08 → MEDS 16:09 → PCU 16:09 → MEDS 21:56 → ENPENDDIS 12-28 11:30 → MEDS 12-28 14:30
PROVIDERS: Emergency Medicine; Internal Medicine; Nurse Practitioner Acute Care; ADMIT Internal Medicine
DX: R11.2 Nausea with vomiting, unspecified (principal); E44.0 Moderate protein-calorie malnutrition; J84.9 Interstitial pulmonary disease, unspecified; C32.9 Malignant neoplasm of larynx, unspecified; E87.6 Hypokalemia; J44.9 Chronic obstructive pulmonary disease, unspecified; E78.5 Hyperlipidemia, unspecified; F17.210 Nicotine dependence, cigarettes, uncomplicated; R62.7 Adult failure to thrive; K21.9 Gastro-esophageal reflux disease without esophagitis; M81.0 Age-related osteoporosis without current pathological fracture; T45.1X5A Adverse effect of antineoplastic and immunosuppressive drugs, initial encounter; E83.42 Hypomagnesemia; E83.39 Other disorders of phosphorus metabolism; R13.12 Dysphagia, oropharyngeal phase; Z88.5 Allergy status to narcotic agent; Z68.28 Body mass index [BMI] 28.0-28.9, adult; Z88.8 Allergy status to other drugs, medicaments and biological substances; Z79.899 Other long term (current) drug therapy; Z79.82 Long term (current) use of aspirin; Z79.891 Long term (current) use of opiate analgesic; Z90.89 Acquired absence of other organs
CPT/HCPCS: 36415; 71045; 71046; 80048; 80053; 80069; 81003; 83605; 83735; 84100; 85025; 85027; 87040; 92526; 92610; 93005; 93010; 94640; 94664; 94760; 96360; 96361; 96372; 96374; 96375; 96376; 97110; 97162; 97530; 99285-25; A9270; C1751; C9113; G0378; J1650; J2405; J2765; J3475; J3480; J7030; J7050

== ENCOUNTER 2023-11-14 12:54 | Emergency (ER) | payer OTHER ==
[~2023-11-14] VITALS: Ht 149.9 cm; Wt 61.7 kg
[~2023-11-14 12:54] MED LIST changes: +B-1100 M1 PO; +BANATROL PLUS1 EAC1 PO; +IPRAT-ALBUT 0.5-3 ML INH
[2023-11-14 13:19] VITALS: BP 125/75
[2023-11-14] MEDS ORDERED: MUPIROCIN1 GM TOP (14:35)
== END 2023-11-14 14:49 | disposition home or self-care (01) ==
LOC: ER 12:54
DX: R21 Rash and other nonspecific skin eruption (principal); F17.210 Nicotine dependence, cigarettes, uncomplicated; Z77.098 Contact with and (suspected) exposure to other hazardous, chiefly nonmedicinal, chemicals; Z79.899 Other long term (current) drug therapy
CPT/HCPCS: 99282

== ENCOUNTER → 2024-03-11 | Outpatient (CLI) | payer OTHER ==
[~2024-03-11] MED LIST changes: +MUPIROCIN1 GM TOP
[2024-03-11 08:34] LABS: Source, Urine Clean Catch
[2024-03-11 12:22] LABS: Bilirubin, Urine Neg (Neg); Blood, Urine 1+ (Neg); Glucose Qualitative, Urine Neg (Neg); Ketones, Urine Neg (Neg); Leukocyte Esterase, Urine Neg (Neg); Nitrite, Urine Neg (Neg); Protein, Urine Neg (Neg); Urobilinogen, Urine NORM (Normal)
[2024-03-11 12:47] LABS: Appearance, Urine Clear (Clear); Bacteria Not Seen /hpf; Color, Urine Yellow (P-Yellow); Red Blood Cells, Urine 0-2 /hpf (0-2); Squamous Epithelial Cells Rare /hpf (Few); White Blood Cells, Urine Not Seen /hpf (0-5)
== END ==
LOC: LAB 07:09 → LAB SHORT 07:09
PROVIDERS: Nurse Practitioner Family
DX: R89.9 Unspecified abnormal finding in specimens from other organs, systems and tissues (principal)
CPT/HCPCS: 81001

== ENCOUNTER 2024-10-07 15:08 | Emergency (ER) | payer OTHER ==
[~2024-10-07] VITALS: Ht 149.9 cm; Wt 66.2 kg
[2024-10-07 16:08] LABS: BASOPHILS ABSOLUTE AUTO 0.05 K/mm3 (0.00-0.23); BASOPHILS PERCENT AUTO 1 % (0-2); EOSINOPHILS ABSOLUTE AUTO 0.32 K/mm3 (0.00-0.68); EOSINOPHILS PERCENT AUTO 5 % (0-6); Hematocrit 38.0 % (33.0-51.0); Hemoglobin 12.7 g/dL (11.5-16.0); IMMATURE GRAN ABSOLUTE AUTO 0.01 K/mm3 (0.00-0.10); IMMATURE GRAN PERCENT AUTO 0 % (0-1); LYMPHOCYTES ABSOLUTE AUTO 1.34 K/mm3 (0.84-5.20); LYMPHOCYTES PERCENT AUTO 22 % (21-46); MONOCYTES ABSOLUTE AUTO 0.44 K/mm3 (0.16-1.47); MONOCYTES PERCENT AUTO 7 % (4-13); Mean Corpuscular HGB Conc 33.4 g/dL (31.5-36.5); Mean Corpuscular Volume 95 fL (80-100); NEUTROPHILS ABSOLUTE AUTO 3.84 K/mm3 (1.96-9.15); NEUTROPHILS PERCENT AUTO 64 % (41-73); NRBC ABSOLUTE 0.00 K/mm3 (0.00-0.02); NRBC Auto 0.0 /100 WBC (0.0-0.2); Platelet Count 271 K/mm3 (150-400); RDW Coefficient Variation 12.8 % (11.7-14.2); RDW Standard Deviation 44.2 fL (35.1-46.3)
[2024-10-07] MEDS ORDERED: Ketorolac Tromethamine 15mg Vial IV ONE (16:10)
[2024-10-07 16:39] LABS: Alanine Aminotransfer (ALT/SGP 15.0 U/L (12-78); Albumin, Blood 3.3 g/dL (3.4-5.0); Albumin/Globulin Ratio 1.0 (0.8-1.8); Anion Gap 7.0 mmol/L (3-11); Aspartate Aminotrans (AST/SGOT 15.0 U/L (12-37); Bilirubin, Total 0.6 mg/dL (0.1-1.0); Blood Urea Nitrogen 6.0 mg/dL (8-24); CO2, Blood 24.0 mmol/L (21-32); Calcium, Blood 8.5 mg/dL (8.5-10.1); Chloride, Blood 110.0 mmol/L (98-108); Creatinine, Blood 0.76 mg/dL (0.40-1.00); Globulin, Blood 3.2 g/dL (2.2-4.0); Glucose, Blood 75.0 mg/dL (70-99); Potassium, Blood 3.3 mmol/L (3.5-5.5); Sodium, Blood 138.0 mmol/L (136-145); Total Protein, Blood 6.5 g/dL (6.4-8.2)
[2024-10-07 16:50] LABS: Influenza A, PCR NEGATIVE (NEGATIVE); Influenza B, PCR NEGATIVE (NEGATIVE); Resp Syncytial Virus, PCR NEGATIVE (NEGATIVE); SARS-Cov-2 (COVID-19) PCR, MMC NEGATIVE (NEGATIVE)
[2024-10-07] MEDS ORDERED: Prochlorperazine Edisylate 10 mg Vial IV ONE (17:05)
[2024-10-07 17:40] LABS: Source, Urine Straight Cath
[2024-10-07 17:47] LABS: Bilirubin, Urine Neg (Neg); Color, Urine Yellow (P-Yellow); Glucose Qualitative, Urine Neg (Neg); Ketones, Urine Neg (Neg); Leukocyte Esterase, Urine Neg (Neg); Protein, Urine Neg (Neg); Specific Gravity, Urine 1.010 (1.003-1.022); Urobilinogen, Urine NORM (Normal)
[2024-10-07 18:03] LABS: White Blood Cells, Urine 0-2 /hpf (0-5)
[2024-10-07 19:08] VITALS: BP 165/66
== END 2024-10-07 19:43 | disposition home or self-care (01) ==
LOC: ER 15:08
PROVIDERS: Student in an Organized Health Care Education/Training Program
DX: B34.9 Viral infection, unspecified (principal); Z88.5 Allergy status to narcotic agent; Z88.8 Allergy status to other drugs, medicaments and biological substances; Z79.899 Other long term (current) drug therapy; Z79.82 Long term (current) use of aspirin; F17.210 Nicotine dependence, cigarettes, uncomplicated
CPT/HCPCS: 70450; 71046; 74177; 80053; 81001; 82947; 83690; 84484; 85025; 87637; 93005; 93010; 96374-59; 96375; 99285-25; J0780; J1885; Q9967